=== PATIENT | female | born 1965 | race Caucasian/White ===

== ENCOUNTER 2020-01-31 18:30 | Emergency (ER) | payer MEDICARE, MEDICAID, SELFPAY ==
--- NOTE | ~2020-01-31 | CT_ITS ---
EXAMINATION: CT abdomen pelvis w con DATE: 01/31/2020 19:46 INDICATION: Lower abdominal pain and rectal bleeding. TECHNIQUE: Computed tomography (CT) of the abdomen and pelvis was performed with 100 mL Omnipaque-350 intravenous contrast. Automated exposure control and iterative reconstruction technique were employe d. The dose-length product was 1011.81 mGy-cm. COMPARISON: None FINDINGS: Lower lungs are clear. Heart size is normal. No pericardial or pleural effusion. 3.1 cm fluid attenua tion cyst at the left breast. Subtle approximately ill-defined 1.6 cm hypodense lesion at the junctio n of segments 6 and 7 in the liver. Cholecystectomy clips at the gallbladder fossa. Spleen, pancreas, bilateral adrenal glands and kidneys are normal. Normal retrocecal appendix. Small bowel is normal w ith no obstruction. There are few scattered colonic diverticula without adjacent inflammatory change to suggest diverticulitis. Bladder is normal. A few small subtle hypodense likely uterine fibroids. 6 mm fluid attenuation nabothian cyst at the cervix. Bilateral adnexa are unremarkable. Small fat-cont aining umbilical hernia. No free intraperitoneal gas or fluid. No pathologically enlarged abdominal o r pelvic lymphadenopathy. Moderate lower thoracic and mild lumbar spondylosis. IMPRESSION: 1. No acute intra-abdominal/pelvic process. 2. Indeterminate subtle ill-defined 1.6 cm hypodense lesion in the right hepatic lobe which in the ab sence of known liver disease or malignancy is most likely benign. Would however recommend further antionette luation with pre and postcontrast MRI or 3. Fibroid uterus. Reviewed, dictated and finalized at location A. IMPRESSION: 1. No acute intra-abdominal/pelvic process. 2. Indeterminate subtle ill-defined 1.6 cm hypodense lesion in the right hepati c lobe which in the absence of known liver disease or malignancy is most likely benign. Would however recommend further evaluation with pre and postcontrast M RI or 3. Fibroid uterus.
[2020-01-31 18:33] VITALS: BP 165/94; PULSE 110; RESP 18; TEMP 36.4; O2SAT 98
[2020-01-31 18:53] LABS: Basophils Absolute Auto 0.1 K/mm3 (0.0-0.1); Basophils Percent Auto 0.6 % (0.2-1.2); Eosinophils Absolute Auto 0.2 K/mm3 (0-0.3); Eosinophils Percent Auto 1.1 % (0-4.4); Hemoglobin 14.9 g/dL (12.0-15.0); Immature Granulocyte Absolute 0.05 K/mm3 (0.00-0.031); Immature Granulocyte Percent A 0.4 % (0-0.5); Lymphocytes Absolute Auto 3.19 K/mm3 (0.9-3.2); Lymphocytes Percent Auto 22.6 % (18.3-44.2); Mean Corpuscular HGB Conc 33.1 g/dl (32-36); Mean Corpuscular Hemoglobin 28.8 pg (26-34); Mean Corpuscular Volume 86.9 fl (80-100); Mean Platelet Volume 9.2 fl (7.4-10.4); Monocytes Percent Auto 7.1 % (2.6-8.5); Neutrophils Absolute Auto 9.6 K/mm3 (1.3-6.7); Neutrophils Percent Auto 68.2 % (45.5-73.1); Platelet Count Result 311 k/mm3 (150-375); Red Blood Count 5.18 M/mm3 (4.2-5.4); Red Cell Distribution Width 13.2 % (11.5-14.5); White Blood Count 14.1 K/mm3 (4.5-10.0)
[2020-01-31 19:03] LABS: Add Urine Microscopic? YES; Appearance Urine Clear (Clear); Bilirubin Urine Negative (Negative); Blood Urine Negative (Negative); Color Urine Yellow (Yellow); Glucose Urine UA Negative (Negative); Ketones Urine Negative (Negative); Leukocyte Esterase Ur Negative LEU/UL (Negative); Mucus Urine Heavy /lpf; Nitrate Urine Negative (Negative); Protein Urine 1+ mg/dL (Negative); RBC Urine 0-2 /hpf (0-2); Specific Grav Ur 1.029 (1.001-1.035); Squamous Epithelial Cell Urine Rare /hpf (Few); Urobilinogen Urine Negative mg/dL (<2.0); WBC Urine 0-3 /hpf
[2020-01-31 19:05] LABS: Alanine Aminotransferase 37 U/L (4-35); Albumin Level 4.2 g/dL (3.5-5.1); Alkaline Phosphatase 102 U/L (38-126); Anion Gap 9 mmol/L (8-16); Aspartate Amino Transferase 29 U/L (14-36); Bilirubin,Total 0.2 mg/dL (0.2-1.3); Blood Urea Nitrogen 13 mg/dL (7-17); Calcium 9.4 mg/dL (8.4-10.2); Carbon Dioxide 32 mmol/L (22-30); Chloride 100 mmol/L (98-107); Estimated CRCL calculation 49 ml/min; Estimated Glomerular Filt Rate 39; Glucose 108 mg/dL (65-105); Lipase 159 U/L (23-300); Potassium 3.2 mmol/L (3.4-5.0); Sodium 141 mmol/L (137-145)
--- NOTE | 2020-01-31 19:24 | ED.GIBLEED ---
HPI - GI Bleed General Chief complaint: GI Bleed Stated complaint: rectal bleeding Time Seen by Provider: 01/31/20 18:59 Source: patient Mode of arrival: ambulatory Limitations: no limitations History of Present Illness HPI Narrative: This patient is a 54 year old female who presents for evaluation of rectal bleeding. She reports yesterday she noticed bright red blood on the toilet paper after having a bowel movement yesterday. She also reports having sharp rectal pain as well. She reports she was doing well until this afternoon. This afternoon she was having another bowel movement and she noticed blood in her stool. She states the stool appeared to be formed. She states she noticed less blood when she wiped. She also reports lower abdominal cramping. She denies associated nausea, vomiting, fever or chills. she also denies urinary symptoms. Related Data Home Medications Medication Instructions Recorded Confirmed clonazepam 01/31/20 lamotrigine [Lamictal] 200 mg PO DAILY 01/31/20 01/31/20 trazodone 01/31/20 vilazodone [Viibryd] mg 01/31/20 01/31/20 Allergies Allergy/AdvReac Type Severity Reaction Status Date / Time latex Allergy Intermediate Itching Verified 01/31/20 18:35 codeine Allergy Unknown Nausea and Verified 01/31/20 18:35 Vomiting lisinopril Allergy Unknown Unknown Verified 01/31/20 18:35 Review of Systems Review of Systems: All systems reviewed & are unremarkable except as noted in HPI and below Constitutional: Constitutional: Denies chills and Denies fever(s) Cardiovascular: Cardiovascular: Denies chest pain Respiratory: Respiratory: Denies cough, Denies dyspnea and Denies wheezing Gastrointestinal: Gastrointestinal: Reports abdominal pain, Denies nausea and Denies vomiting [facility] Past Medical History Medical History (Updated 02/01/20 @ 00:00 by Background Daemon) Bipolar disorder Hypertension Surgical History Surgical History (Updated 01/31/20 @ 19:29 by Radha Lenz MD) History of cholecystectomy Family History Family History (Updated 08/04/18 @ 14:42 by DOCTOR UNKNOWN) Father Family history of emphysema Family history of thoracic aortic aneurysm Patient's father is Mother Hypertension Family history of arthritis Family history of congestive heart failure Grandparent Hypertension Family history of osteoarthritis Cerebrovascular accident Family history of aortic aneurysm Other Diabetes mellitus Family history of allergic disorder Family history of cardiovascular disease Social History Social History Smoking status: Former smoker Second hand tobacco smoke exposure: No Smoking end date: 04/29/99 Alcohol intake: never Gender identity (if verbalized by the patient): Female Exam Const: General: no acute distress and alert Orientation/consciousness: patient oriented x3 Eyes: EOM: EOMs intact bilaterally Neck: Neck: no lymphadenopathy Resp: Effort & Inspection: normal respiratory effort and no retractions Auscultation: clear to auscultation bilaterally Cardio: Rate: regular rate Rhythm: regular rhythm Heart sounds: no murmurs GI: GI Palp: Yes Soft to palpation, Yes Tenderness to palpation present (GI) (LLQ), No Guarding due to palpation present (GI), No Rigid due to palpation and No Hernia present Rectal Exam: heme negative stool and hemorrhoids Skin: General skin exam: normal color Rashes: no rashes Neuro: General: patient oriented x3 and moves all extremities Extrem: General: normal to inspection and no pedal edema Psych: Mental Status: mental status grossly normal Affect: normal affect Course Reevaluation(s) Reevaluation #1: I discussed with patient about CT results showing uterine fibroid, breast cyst and lesions on liver. She is aware of breast cyst. She understands she will need to follow up for liver lesions. She has not had a colonoscopy so she understands she will need on
[2020-01-31] MEDS: SODIUM CHLORIDE 0.9% IV 1,000 ML 999 ML IV CONT (19:42)
[2020-01-31 20:57] VITALS: BP 152/74; PULSE 72; RESP 16; O2SAT 99
== END 2020-01-31 20:58 | disposition home or self-care (01) ==
PROVIDERS: Emergency Medicine Emergency Medical Services; Emergency Provider General Practice
DX: K64.9 Unspecified hemorrhoids (principal); F31.9 Bipolar disorder, unspecified; Z87.891 Personal history of nicotine dependence; K76.9 Liver disease, unspecified; D25.9 Leiomyoma of uterus, unspecified
CPT/HCPCS: 36415; 74177; 80053; 81001; 83690; 85025; 86850; 86900; 86901; 96360; 99284; J7030; Q9967

== ENCOUNTER 2020-02-25 14:28 | Outpatient (CLI) | payer MEDICARE, MEDICAID, SELFPAY ==
--- NOTE | ~2020-02-25 | MR_ITS ---
EXAMINATION: MR abdomen wo/w con DATE: 02/25/2020 15:58 INDICATION: Mass in right hepatic lobe. TECHNIQUE: Magnetic resonance imaging (MRI) of the abdomen was performed without and with 19 mL Multi Lakesha intravenous contrast. Sequences included coronal T2-weighted FS FSE, coronal and axial FS FIEST A, axial T2-weighted FSE, coronal LAVA-flex, axial STIR FSE, axial DWI, axial dual-echo T1-weighted F SPGR, and axial LAVA. Postcontrast sequences included coronal LAVA-flex and a time course of axial LA VA. COMPARISON: CT abdomen and pelvis 01/31/20 FINDINGS: There is a 3.7 cm cyst in left breast. There is a 1.6 cm mass with delayed hyperenhancement in right hepatic lobe. The gallbladder is absent. The spleen, pancreas, adrenal glands, and kidneys are normal . There are no dilated loops of bowel. There are no pathologically enlarged lymph nodes. There is no free intraperitoneal fluid. IMPRESSION: 1. 1.6 cm mass in right hepatic lobe. In the absence of known malignancy or chronic liver disease, th is finding is likely a hemangioma. Reviewed, dictated and finalized at location A. IMPRESSION: 1. 1.6 cm mass in right hepatic lobe. In the absence of known malignancy or chr onic liver disease, this finding is likely a hemangioma.
[2020-02-25 15:22] LABS: Estimated Glomerular Filt Rate 47
== END 2020-02-25 14:29 | disposition home or self-care (01) ==
PROVIDERS: PCP Family Medicine; Visit Provider Family Medicine
DX: K76.9 Liver disease, unspecified (principal)
CPT/HCPCS: 74183; A9577

== ENCOUNTER 2022-04-02 15:20 | Emergency (ER) | payer MEDICARE, MEDICAID, SELFPAY ==
--- NOTE | ~2022-04-02 | XR_ITS ---
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 RESULT: Lines, tubes, and devices: Cholecystectomy clips. Lungs and pleura: Clear. Cardiomediastinal silhouette: Stable. Other: No acute osseous or upper abdominal finding. IMPRESSION: No acute cardiopulmonary process. Reviewed, dictated and finalized at location K. NG MACHINE OPERATOR
[2022-04-02 15:21] VITALS: BP 144/98; PULSE 92; RESP 16; TEMP 36.3; O2SAT 100
--- NOTE | 2022-04-02 15:29 | ECG_ITS ---
Measurements Intervals [place] Rate: 82 P: 41 DE: 182 QRS: -5 QRSD: 87 T: 29 QT: 365 QTc: 428 Interpretive Statements SINUS RHYTHM MINIMAL VOLTAGE CRITERIA FOR LVH, CONSIDER NORMAL VARIANT LOW-VOLTAGE QRS IN PRECORDIAL LEADS BORDERLINE ECG NO PREVIOUS ECG AVAILABLE FOR COMPARISON Electronically Signed On 04-02-2022 16:09:45 POST EXCHANGE MANAGER by Sergio Rock M.D.
[2022-04-02 15:51] LABS: Basophils Absolute Auto 0.1 K/mm3 (0.0-0.1); Basophils Percent Auto 0.8 % (0.2-1.2); Eosinophils Absolute Auto 0.1 K/mm3 (0-0.3); Eosinophils Percent Auto 1.8 % (0-4.4); Hematocrit 39.9 % (37.0-47.0); Hemoglobin 12.9 g/dL (12.0-15.0); Immature Granulocyte Absolute 0.02 K/mm3 (0.00-0.031); Immature Granulocyte Percent A 0.3 % (0-0.5); Lymphocytes Absolute Auto 2.06 K/mm3 (0.9-3.2); Lymphocytes Percent Auto 26.4 % (18.3-44.2); Mean Corpuscular HGB Conc 32.3 g/dl (32-36); Mean Corpuscular Volume 86.6 fl (80-100); Mean Platelet Volume 9.2 fl (7.4-10.4); Monocytes Absolute Auto 0.5 K/mm3 (0.1-0.6); Monocytes Percent Auto 6.8 % (2.6-8.5); Neutrophils Percent Auto 63.9 % (45.5-73.1); Platelet Count Result 259 k/mm3 (150-375); Red Blood Count 4.61 M/mm3 (4.2-5.4); Red Cell Distribution Width 14.1 % (11.5-14.5); White Blood Count 7.8 K/mm3 (4.5-10.0)
[2022-04-02 16:00] LABS: Alanine Aminotransferase 31 U/L (6-35); Albumin Level 3.4 g/dL (3.5-5.1); Alkaline Phosphatase 102 U/L (38-126); Anion Gap 6 mmol/L (8-16); Aspartate Amino Transferase 26 U/L (14-36); Bilirubin,Total 0.3 mg/dL (0.2-1.3); Blood Urea Nitrogen 13 mg/dL (7-17); Calcium 8.2 mg/dL (8.4-10.2); Carbon Dioxide 27 mmol/L (22-30); Chloride 107 mmol/L (98-107); Estimated CRCL calculation 74 ml/min; Estimated Glomerular Filt Rate > 60; Glucose 102 mg/dL (65-110); Lipase 42 U/L (23-300); Potassium 3.7 mmol/L (3.4-5.0); Sodium 140 mmol/L (137-145)
[2022-04-02 16:01] LABS: Prothrombin Time 12.5 Seconds (11.1-14.7)
[2022-04-02 16:02] LABS: Partial Thromboplastin Time 29.8 SECONDS (22.3-36.8)
[2022-04-02 16:12] LABS: Troponin I < 0.012 ng/mL (0.000-0.034)
[2022-04-02 18:39] VITALS: BP 153/83; PULSE 70; RESP 16; TEMP 36.1; O2SAT 100
--- NOTE | 2022-04-02 18:39 | ECG_ITS ---
Measurements Intervals [place] Rate: 69 P: 21 IA: 166 QRS: -3 QRSD: 90 T: 16 QT: 391 QTc: 420 Interpretive Statements SINUS RHYTHM MODERATE VOLTAGE CRITERIA FOR LVH, CONSIDER NORMAL VARIANT [MEETS CRITERIA IN ONE OF: R(aVL), S(V1), R(V5), R(V5/V6)+S(V1)] COMPARED TO ECG 04/02/2022 15:32:54 NO SIGNIFICANT CHANGES Electronically Signed On 04-03-2022 15:22:03 RADIOLOGY TEACHER by Liss Aguila M.D.
[2022-04-02 19:16] LABS: Troponin I 0.024 ng/mL (0.000-0.034)
--- NOTE | 2022-04-02 20:11 | PC.NURSE ---
patient left waiting room without seeing provider. advised to return if needed.
== END 2022-04-02 21:15 | disposition left against medical advice (07) ==
PROVIDERS: Emergency Provider Emergency Medicine; PCP Family Medicine
DX: M62.830 Muscle spasm of back (principal); R07.2 Precordial pain; M79.602 Pain in left arm
CPT/HCPCS: 36415; 71046; 80053; 83690; 84484; 85025; 85610; 85730; 93005; 99199

== ENCOUNTER 2022-05-16 11:17 | Outpatient (CLI) | payer MEDICARE, MEDICAID, SELFPAY ==
[2022-05-16 13:12] LABS: Urine Cotinine NEGATIVE
[2022-05-17 13:42] LABS: Hemoglobin A1C 5.9 % (<5.7)
== END 2022-05-16 11:18 | disposition home or self-care (01) ==
PROVIDERS: PCP Family Medicine; Visit Provider Orthopaedic Surgery
DX: Z01.812 Encounter for preprocedural laboratory examination (principal); M17.11 Unilateral primary osteoarthritis, right knee
CPT/HCPCS: 80307; 82040; 83036; 86850; 86900; 86901; 87081

== ENCOUNTER 2022-06-11 16:49 | Outpatient (CLI) | payer MEDICARE, MEDICAID, SELFPAY ==
--- NOTE | ~2022-06-11 | XR_ITS ---
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 RESULT: Lines, tubes, and devices: Cholecystectomy clips. Lungs and pleura: Clear. Cardiomediastinal silhouette: Stable. Other: No acute osseous or upper abdominal finding. IMPRESSION: No acute cardiopulmonary process. Reviewed, dictated and finalized at location K. RSITY MANAGER
[2022-06-11 18:48] LABS: Influenza A QL RT-PCR Negative (Negative); Influenza B QL RT-PCR Negative (Negative); RSV RNA, RT-PCR Negative (Negative); SARS-CoV-2 RNA PCR Negative
== END 2022-06-11 16:50 | disposition home or self-care (01) ==
PROVIDERS: PCP Family Medicine; Visit Provider Family Medicine
DX: R05.9 Cough, unspecified (principal); Z20.822 Contact with and (suspected) exposure to COVID-19
CPT/HCPCS: 71046; 87637

== ENCOUNTER 2022-10-04 09:44 | Outpatient (CLI) | payer MEDICARE, MEDICAID, SELFPAY ==
[2022-10-04 10:42] LABS: Basophils Absolute Auto 0.1 K/mm3 (0.0-0.1); Basophils Percent Auto 1.3 % (0.2-1.2); Eosinophils Absolute Auto 0.3 K/mm3 (0-0.3); Eosinophils Percent Auto 3.5 % (0-4.4); Hemoglobin 13.6 g/dL (12.0-15.0); Immature Granulocyte Absolute 0.03 K/mm3 (0.00-0.031); Immature Granulocyte Percent A 0.3 % (0-0.5); Lymphocytes Percent Auto 26.7 % (18.3-44.2); Mean Corpuscular HGB Conc 31.6 g/dl (32-36); Mean Corpuscular Hemoglobin 27.3 pg (26-34); Mean Corpuscular Volume 86.2 fl (80-100); Mean Platelet Volume 9.2 fl (7.4-10.4); Monocytes Absolute Auto 0.5 K/mm3 (0.1-0.6); Monocytes Percent Auto 6.1 % (2.6-8.5); Neutrophils Absolute Auto 5.4 K/mm3 (1.3-6.7); Neutrophils Percent Auto 62.1 % (45.5-73.1); Platelet Count Result 265 k/mm3 (150-375); Red Blood Count 4.99 M/mm3 (4.2-5.4); Red Cell Distribution Width 13.7 % (11.5-14.5); White Blood Count 8.6 K/mm3 (4.5-10.0)
[2022-10-04 10:49] LABS: Albumin Level 3.8 g/dL (3.5-5.1)
[2022-10-04 10:52] LABS: Urine Cotinine NEGATIVE
[2022-10-04 10:54] LABS: Hemoglobin A1C 5.4 % (<5.7)
[2022-10-04 10:55] LABS: Anion Gap 5 mmol/L (8-16); Blood Urea Nitrogen 14 mg/dL (7-17); Calcium 8.4 mg/dL (8.4-10.2); Carbon Dioxide 30 mmol/L (22-30); Chloride 105 mmol/L (98-107); Estimated Glomerular Filt Rate 58; Glucose 99 mg/dL (65-110); Potassium 3.8 mmol/L (3.4-5.0); Sodium 140 mmol/L (137-145)
== END 2022-10-04 09:45 | disposition home or self-care (01) ==
LOC: ANHSURGERY 09:49
PROVIDERS: Anesthesiology; PCP Family Medicine; Visit Provider Orthopaedic Surgery
DX: Z01.812 Encounter for preprocedural laboratory examination (principal); M17.11 Unilateral primary osteoarthritis, right knee; Z79.899 Other long term (current) drug therapy
CPT/HCPCS: 36415; 80048; 80307; 82040; 83036; 85025; 86850; 86900; 86901; 87081

== ENCOUNTER 2022-10-10 09:00 | Inpatient (IN) | payer MEDICARE, MEDICAID, SELFPAY ==
--- NOTE | 2022-05-16 11:23 | PC.NURSE ---
PRE-OP INSTRUCTIONS, PLEASE READ CAREFULLY Report to the Outpatient Waiting Room, entrance under the green pavilion located off [facility], at time _0600_ on date _05/23/22_. Planned Procedure Time: _0730_. PACK A SMALL OVERNIGHT BAG AND LEAVE IN THE CAR ALONG WITH YOUR WALKER Time changes happen often and if your time is changed the preop area will call you the afternoon before. - You and your visitor will be asked to self-screen and do not enter if you have any COVID symptoms. - Only one visitor is requested with a max of two and NO children visitors are allowed at this time. - The patient visitor may be requested to leave or wait in car when not with patient due to distancing restrictions. - A mask is optional within the hospital. -VISITING HOURS 8AM-8PM Patients may have clear liquids (water, carbonated beverages, clear teas, apple juice) until 3 hours prior to surgery (0430 AM) with a maximum of 20 ounces. - No food from midnight until time of surgery Take the following medications with a SIP of water the morning of surgery: _CLONAZEPAM, VILAZODONE_ Medications to discontinue -_ALEVE PER DR. SEVILLA'S INSTRUCTIONS_ Medications to discontinue per ANESTHESIA - _MULTIVITAMIN 3 DAYS PRIOR TO SURGERY, Date to take last dose 05/19/22_ Please no make-up, nail japanese, hairspray, perfume, deodorant, or body powder the day of surgery. No jewelry (including any body piercings) or valuables the day of surgery, leave them at home. Please take a shower or bath the night before, or the morning of, surgery with an antibacterial soap. Wear comfortable, loose fitting clothing. - Jewelry must be removed prior to entering the operating room. Rings and piercings that are not removed may be cut off. - The hospital will not accept responsibility for valuables. - Please leave all valuables, including medications, at home the day of surgery. If you are going home after surgery, a licensed crew truck driver must drive you home. - NO public transportation without another adult if you receive anesthesia. - We recommend that an adult stay with you for 24 hours following discharge. - We also recommend that you do not drive, make important decision, drink alcoholic beverages, or take any drugs that were not prescribed by your health care provider for at least 24 hours after your discharge time. Follow any additional instructions given to you from your surgeon. If you or anyone in your household have experienced Covid symptoms in the past week, please notify your surgeon or the nurse liaison at the phone number below for possible testing. Instructions given to _PATIENT_and asked if any additional questions and then verbalized understanding. Patient advised to call surgeon office or pre surgery nurse liaison [phone] if any additional questions.
[2022-05-16 11:48] VITALS: BP 140/90; PULSE 96; RESP 20; TEMP 36.7; O2SAT 96; BMI 37.1
--- NOTE | 2022-05-17 13:10 | PM.IMHP ---
H&P: HPI History of Present Illness Date/Time: 05/17/22 13:10 Chief Complaint: The patient is a 56-year-old female who sees Dr. Olmos regarding her right knee. The patient has a chronic ongoing history of pain localized right knee this is our primary osteoarthritis. The patient has been treated over the years with cortisone therapy and anti-inflammatories and gel shots as well. X-rays show advanced primary osteoarthritis both knees, she has limitation of daily activity has trouble standing or walking for any amount of time is aching pain worse with activity somewhat relieved by rest. The patient has failed a long course of conservative measures x-rays show advanced primary osteoarthritis she has discussed further treatment options in detail Dr. Olmos the patient would now like to proceed with a right total knee arthroplasty. Review of Systems Review of Systems: Ten point review of systems otherwise negative [facility] Past Medical History Medical History Anxiety Bipolar depression Bipolar disorder Hypertension Hypokalemia Surgical History Surgical History History of 08/1989 History of cholecystectomy 05/2013 History of endometrial ablation 01/2005 History of hemorrhoidectomy History of tonsillectomy 1972 Family History Family History Father Family history of emphysema Family history of thoracic aortic aneurysm Patient's father is Mother Hypertension Family history of arthritis Family history of congestive heart failure Grandparent Hypertension Family history of osteoarthritis Cerebrovascular accident Family history of aortic aneurysm Other Diabetes mellitus Family history of allergic disorder Family history of cardiovascular disease Social History Social History Smoking packs per day: 2.5 Smoking cigarettes per day: 50.0 Years smoked: 20 Smoking pack-years: 50.00 Smoking status: Former smoker Tobacco type: cigarettes Second hand tobacco smoke exposure: No Smoking end date: 04/29/99 Alcohol intake: never Substance use: never Gender identity (if verbalized by the patient): Female Spiritual care concerns: No Meds Home Medications and Allergies Home Medications Medication Instructions Recorded Confirmed Type clonazepam 0.5 mg tablet 0.5 mg PO QID 02/16/20 05/16/22 History lamotrigine 200 mg tablet 200 mg PO DAILY 02/16/20 05/16/22 History (Lamictal) trazodone 100 mg tablet 100 mg PO HS 02/16/20 05/16/22 History vilazodone 40 mg tablet (Viibryd) 40 mg PO DAILY 02/16/20 05/16/22 History omeprazole 40 mg capsule,delayed 40 mg PO DAILY #90 caps 02/23/22 05/16/22 Rx release hydrochlorothiazide 50 mg tablet See Rx Instructions .Route 03/26/22 05/16/22 Rx .COMPLEX #90 tabs potassium chloride 20 mEq 20 meq PO DAILY #90 tabs 03/26/22 05/16/22 Rx tablet,extended release gtbtzmzn-dqp-llrhc acid 500 1 tablet PO DAILY 05/16/22 05/16/22 History mcg-lycopene 300 mcg-lutein 250 mcg tablet naproxen sodium 220 mg tablet 220 mg PO BID PRN Pain 05/16/22 05/16/22 History (Aleve) triamcinolone acetonide 0.1 % 1 applic topical BID PRN SKIN 05/16/22 05/16/22 History topical cream IRRITAION Allergies Allergy/AdvReac Type Severity Reaction Status Date / Time latex Allergy Intermediate Itching Verified 05/16/22 11:38 codeine Allergy Unknown Nausea and Verified 05/16/22 11:38 Vomiting hydrocodone AdvReac Nausea and Verified 05/16/22 11:58 Vomiting Exam Narrative: on exam the patient is noted to be 5 ft 5 in tall 220 lb the BMI 36 well-developed well-nourished female no acute distress alert oriented x3. Normal mood and affect. Hearing and vision intact she wears glasses. Respiratory is good no
--- NOTE | 2022-10-01 08:57 | PC.NURSE ---
PRE-OP INSTRUCTIONS, PLEASE READ CAREFULLY Report to the Outpatient Waiting Room, entrance under the green pavilion located off [facility], at time _0600_ on date _10/10/22_. Planned Procedure Time: _0730_. PACK A SMALL OVERNIGHT BAG AND LEAVE IN THE CAR ALONG WITH YOUR WALKER Time changes happen often and if your time is changed the preop area will call you the afternoon before. - You and your visitor will be asked to self-screen and do not enter if you have any COVID symptoms. - A mask is optional within the hospital at this time. -VISITING HOURS 8AM-8PM Patients may have clear liquids (water, carbonated beverages, clear teas, apple juice) until 3 hours prior to surgery (0430 AM) with a maximum of 20 ounces. - No food from midnight until time of surgery - Infants may have breast milk until 4 hours before surgery, infant formula 6 hours prior to surgery. -Take the following medications with a SIP of water the morning of surgery: _CLONAZEPAM, LAMOTRIGINE, VILAZODONE_ DO NOT STOP ANY OF YOUR OTHER PRESCRIPTION MEDICATIONS PRIOR TO SURGERY ?EXCEPT THE FOLLOWING Medications to discontinue per - _ALEVE PER DR. SEVILAL'S INSTRUCTIONS_ Medications to discontinue per ANESTHESIA - MULTIVITAMIN 3 DAYS PRIOR TO SURGERY, Date to take last dose 10/06/22_ Please no make-up, nail gibraltarian, hairspray, perfume, deodorant, or body powder the day of surgery. No jewelry (including any body piercings) or valuables the day of surgery, leave them at home. Please take a shower or bath the night before, or the morning of, surgery with an antibacterial soap. Wear comfortable, loose fitting clothing. Children are encouraged to wear pajamas. - Jewelry must be removed prior to entering the operating room. Rings and piercings that are not removed may be cut off. - The hospital will not accept responsibility for valuables. - Please leave all valuables, including medications, at home the day of surgery. If you are going home after surgery, a licensed buggy driver must drive you home. - NO public transportation without another adult if you receive anesthesia. - We recommend that an adult stay with you for 24 hours following discharge. - We also recommend that you do not drive, make important decision, drink alcoholic beverages, or take any drugs that were not prescribed by your health care provider for at least 24 hours after your discharge time. Follow any additional instructions given to you from your surgeon. If you or anyone in your household have experienced Covid symptoms in the past week, please notify your surgeon or the nurse liaison at the phone number below for possible testing. Telephone instructions given to _PATIENT_and asked if any additional questions and then verbalized understanding. Patient advised to call surgeon office or pre surgery nurse liaison [phone] if any additional questions.
[2022-10-01 09:16] VITALS: BMI 36.3
--- NOTE | 2022-10-04 13:59 | PM.IMHP ---
H&P: HPI History of Present Illness Date/Time: 10/04/22 13:59 Chief Complaint: The patient is a 56-year-old female who sees Dr. Olmos regarding her right knee the patient has a chronic ongoing history of pain localized to the right knee due to primary osteoarthritis. She has chronic aching pain limits her daily activities she has been treated over the years with cortisone therapy gel shots and anti-inflammatories without significant long-term relief. She has x-rays which show advanced primary osteoarthritis of both knees. She has trouble squatting kneeling going up and downstairs cannot stand or walk for long periods. Despite conservative measures symptoms continue. The patient is where she has advanced osteoarthritis noted on x-ray and exam. The patient at this point has failed conservative measures and discuss further treatment options in detail with Dr. Olmos she would now like to proceed with right total knee arthroplasty. Review of Systems Review of Systems: Ten point review of systems otherwise negative does have a history of anxiety. [facility] Past Medical History Medical History Anxiety Bipolar depression Hypertension Hypokalemia Osteoarthritis of knees, bilateral Prediabetes Surgical History Surgical History History of 08/1989 History of cholecystectomy 05/2013 History of endometrial ablation 01/2005 History of hemorrhoidectomy History of tonsillectomy 1973 Family History Family History Father Family history of emphysema Family history of thoracic aortic aneurysm Patient's father is Mother Hypertension Family history of arthritis Family history of congestive heart failure Grandparent Hypertension Family history of osteoarthritis Cerebrovascular accident Family history of aortic aneurysm Other Diabetes mellitus Family history of allergic disorder Family history of cardiovascular disease Social History Social History Smoking packs per day: 2.5 Smoking cigarettes per day: 50.0 Years smoked: 20 Smoking pack-years: 50.00 Smoking status: Former smoker Tobacco type: cigarettes Second hand tobacco smoke exposure: No Smoking end date: 04/29/01 Additional smoking assessment comments: PT DENIES ALL FORMS OF TOBACCO USE Alcohol intake: never Substance use: never Living arrangements: alone Gender identity (if verbalized by the patient): Female Spiritual care concerns: No Meds Home Medications and Allergies Home Medications Medication Instructions Recorded Confirmed Type lamotrigine 200 mg tablet 200 mg PO DAILY 02/16/20 10/01/22 History (Lamictal) trazodone 100 mg tablet 100 mg PO HS 02/16/20 10/01/22 History vilazodone 40 mg tablet (Viibryd) 40 mg PO DAILY 02/16/20 10/01/22 History potassium chloride 20 mEq 20 meq PO DAILY #90 tabs 03/26/22 10/01/22 Rx tablet,extended release isndhuyp-bwb-bopbj acid 500 1 tablet PO DAILY 05/16/22 10/01/22 History mcg-lycopene 300 mcg-lutein 250 mcg tablet naproxen sodium 220 mg tablet 220 mg PO BID PRN Pain 05/16/22 10/01/22 History (Aleve) triamcinolone acetonide 0.1 % 1 applic topical BID PRN SKIN 05/16/22 10/01/22 History topical cream IRRITAION clonazepam 1 mg tablet 1 mg PO QID 09/13/22 10/01/22 History hydrochlorothiazide 50 mg tablet 50 mg PO DAILY 09/13/22 10/01/22 History omeprazole 40 mg capsule,delayed 40 mg PO DAILY #30 caps 09/25/22 10/01/22 Rx release Allergies Allergy/AdvReac Type Severity Reaction Status Date / Time latex Allergy Intermediate Itching Verified 10/01/22 08:56 codeine Allergy Unknown Nausea and Verified 10/01/22 08:56 Vomiting hydrocodone AdvReac Nausea and Verified 10/01/22 08:56 Vomiting Exam Narrat
--- NOTE | ~2022-10-10 | XR_ITS ---
EXAMINATION: [id number] DATE: 10/10/2022 INDICATION: Right knee arthroplasty. Postop. TECHNIQUE: 2 views of right knee were obtained. COMPARISON: None. FINDINGS: There is a total right knee arthroplasty in near-anatomic alignment with patellar resurfaci ng. No fracture. There is gas in the knee joint and soft tissues, consistent with recent surgery. Ant erior skin jo are noted. IMPRESSION: 1. Total right knee arthroplasty in near-anatomic alignment. Reviewed, dictated and finalized at location A.
--- NOTE | ~2022-10-10 | XR_ITS ---
EXAM: XR foot RT min 3V DATE: 10/11/2022 13:52 HISTORY: trauma, pain swelling metatarsals AND TOES . COMPARISON: None available. FINDINGS: Normal mineralization. Oblique minimally displaced fracture of the proximal aspect of the fourth proximal phalange. Minimally displaced oblique fracture of the fifth middle phalange. No lytic or blastic lesion. Achilles and plantar enthesopathy. No erosion or periosteal change. Forefoot soft tissue swelling. IMPRESSION: Minimally displaced fractures of the fourth proximal and fifth middle phalanges. Reviewed, dictated and finalized at location K. IMPRESSION: Minimally displaced fractures of the fourth proximal and fifth midd le phalanges.
--- NOTE | 2022-10-10 09:17 | OP_ITS ---
This report was moved to the correct visit on 10/11/2022. Original report was signed by Raman Olmos MD on 10/11/22 0756. cc: Raman Olmos MD; Silas Burgos MD~ DATE OF PROCEDURE: 10/10/2022 DIAGNOSIS: Degenerative arthritis, right knee. PROCEDURE: Right total knee arthroplasty. DESIGN ENG: Perry Giordano PA-C. DESCRIPTION OF PROCEDURE: The patient was brought to the operating room. General anesthetic was administered. Placed on the operating room table and sterilely prepped and draped in usual manner. Tourniquet was inflated to 300 mmHg for a total of 47 minutes. Longitudinal incision was made. Dissection was carried down the fascia. Medial parapatellar incision was made and the patella subluxated laterally. The patella wasa cut from 21 to 14 mm. The femur was then cut in 6 degrees of valgus to accept a 60 fermoral component. The tibia was cut perpendicular to the long axis and a 63 tibia was felt to fit the best. Soft tissue balanced, hemostasis obtained in all [address] 63 tibia, 60 femur, 31 mm patella, 11 mm tray placed. This gave excellent motion of both flexion and extension. All counts were correct. The patella tracked with the no thumbs technique. Tourniquet released. Hemostasis obtained. The wound thoroughly irrigated and closed with #2 Vicryl and 2 Quill, 2-0 Vicryl, 0 Quill and jo. Sterile dressing applied. The patient left the operating room in satisfactory condition. Proshesis: Biomet Annika Villar I MT: [facility] This report may have been done utilizing a voice recognition system. Attempts have been made to correct errors. However, there may be uncorrected grammatical, spelling, and recognition errors present. Dictated By: Raman Olmos MD 10/10/22 0917 Transcribed Date/Time: 10/10/22 1245 Signed By: Raman Olmos MD 10/11/[address] [facility]
--- NOTE | 2022-10-10 10:15 | OP_ITS ---
cc: ~ DATE OF PROCEDURE: 10/10/2022 PREOPERATIVE DIAGNOSIS: Advanced primary osteoarthritis, right knee joint. POSTOPERATIVE DIAGNOSIS: Advanced primary osteoarthritis, right knee joint, status post right total knee arthroplasty. PROCEDURE: Right total knee arthroplasty. SURGEON: Raman Olmos MD. HANDKERCHIEF MAKER: Perry Giordano P.A.-C. TOTAL BLOOD LOSS: Approximately 200 cc. DESCRIPTION OF PROCEDURE: The patient was taken to the operating room on 10/10/2022. I entered the room at 7:15 a.m. I assisted with positioning the patient on the table including placement of the tourniquet on the thigh, which was well padded. Then assisted with a sterile prep and drape of the right lower extremity. Throughout the procedure, I assisted with wound retraction, hemostasis with suction and cauterization, placement of the leg throughout the procedure, placement of the implant, and excess cement removal once the implant was placed. Once Dr. Olmos completed his portion of the procedure, I then did a thorough irrigation of the wound, followed by placement of Surgicel powder throughout the deep layers of the surgical wound. I then began with closure of the capsule of the right knee with #2 Vicryl and #2 Quill. I then irrigated the wound once again, placed more Surgicel powder. I made sure complete hemostasis was obtained with cauterization. I then closed the skin layer with 2-0 Vicryl, 0 Quill and surgical jo, placing a sterile dressing with Xeroform gauze, 4 x 4 gauze, Sof-Rol gauze, and a large Derrick wrap from the toes to the thigh. The patient was in stable condition without intraoperative complications. The patient was awakened from general anesthesia, then transferred the patient [facility] in good condition. The patient was expected to spend the night, to be discharged tomorrow if in stable condition. I exited the room at 9:50 a.m. Jian Corrine MT: Anurag This report may have been done utilizing a voice recognition system. Attempts have been made to correct errors. However, there may be uncorrected grammatical, spelling, and recognition errors present. Dictated By: Perry Giordano PA-C 10/10/22 1015 Transcribed Date/Time: 10/10/22 6865 Signed By: BEATRIZ
--- NOTE | 2022-10-10 15:03 | OP_ITS ---
DATE OF PROCEDURE: 10/10/2022 PREOPERATIVE DIAGNOSIS: Advanced primary osteoarthritis, right knee joint. POSTOPERATIVE DIAGNOSIS: Advanced primary osteoarthritis, right knee joint, status post right total knee arthroplasty. PROCEDURE: Right total knee arthroplasty. SURGEON: Raman Olmos MD. FUNCTIONAL DIRECTOR: Perry Giordano P.A.-C. TOTAL BLOOD LOSS: Approximately 200 cc. DESCRIPTION OF PROCEDURE: The patient was taken to the operating room on 10/10/2022. I entered the room at 7:15 a.m. I assisted with positioning the patient on the table including placement of the tourniquet on the thigh, which was well padded. Then assisted with a sterile prep and drape of the right lower extremity. Throughout the procedure, I assisted with wound retraction, hemostasis with suction and cauterization, placement of the leg throughout the procedure, placement of the implant, and excess cement removal once the implant was placed. Once Dr. Olmos completed his portion of the procedure, I then did a thorough irrigation of the wound, followed by placement of Surgicel powder throughout the deep layers of the surgical wound. I then began with closure of the capsule of the right knee with #2 Vicryl and #2 Quill. I then irrigated the wound once again, placed more Surgicel powder. I made sure complete hemostasis was obtained with cauterization. I then closed the skin layer with 2-0 Vicryl, 0 Quill and surgical jo, placing a sterile dressing with Xeroform gauze, 4 x 4 gauze, Sof-Rol gauze, and a large Derrick wrap from the toes to the thigh. The patient was in stable condition without intraoperative complications. The patient was awakened from general anesthesia, then transferred the patient [facility] to recovery room in good condition. The patient was expected to spend the night, to be discharged tomorrow if in stable condition. I exited the room at 9:50 a.m. Jian Corrine MT: Anurag
[2022-10-10] MEDS: DEXTROSE 5%/0.45% SOD CHL 1,000 ML 80 ML IV CONT (18:00)
[2022-10-10] MEDS: HYDROcodone/acetaminophen (*CRX) 7.5-325 MG TABLET 1 TAB PO (21:14)
[2022-10-10 21:22] VITALS: BMI 36.7
[2022-10-10 21:23] VITALS: BP 126/70; PULSE 93; RESP 20; TEMP 36.4; O2SAT 96
--- NOTE | 2022-10-10 22:06 | PC.NURSE ---
Paper documentation exists on this patient due to [employer] [facility] downtime on 10/10/22 from 0030 to [1930] .
[2022-10-11] MEDS: ceFAZolin 1 GM/NS 50 ML 1 GM/50 ML BAG IVPB ×2 (01:00→09:37)
[2022-10-11] MEDS: HYDROcodone/acetaminophen (*CRX) 7.5-325 MG TABLET 1 TAB PO ×6 (01:05→21:11)
[2022-10-11 01:09] VITALS: BP 133/59; PULSE 84; RESP 16; TEMP 36.6; O2SAT 98
[2022-10-11 04:59] VITALS: BP 140/69; PULSE 86; RESP 18; TEMP 36.5; O2SAT 97
--- NOTE | 2022-10-11 05:00 | CONS_ITS ---
DATE OF CONSULTATION: 10/10/2022 TIME OF EVALUATION: 20:00. REASON FOR CONSULTATION: Postoperative medical management. HISTORY OF PRESENT ILLNESS: This is a 57-year-old female with history of osteoarthritis, hypertension, GERD, bipolar disorder, depression, and anxiety whom the hospitalist service has been consulted for help managing her medical conditions postoperatively. She has had longstanding pain in her right knee, which has gotten to the point where it is affecting her activities of daily living. Conservative outpatient treatment has not provided her with longstanding relief and she elected for replacement today. I do not have the operative notes available to me at this time, but according to the nurse there were no immediate complications. Postoperatively, she has been feeling okay as long as her pain is under control. At times, she has a sharp shooting pain in the anterior knee and she has been experiencing some burning discomfort at the incision site as well. She denies postoperative fever, chills, sweats, chest pain, shortness of breath, nausea, vomiting. She also denies paresthesia, skin color or temperature changes distal to the surgical site. She believes that her chronic medical conditions are well controlled on home medication. REVIEW OF SYSTEMS: Twelve systems were reviewed and are negative except for as per HPI. MEDICAL HISTORY: 1. Osteoarthritis. 2. Anxiety. 3. Depression. 4. Bipolar disorder. 5. Hypertension. 6. Prediabetes. SURGICAL HISTORY: 1. section on 09/14/1989. 2. Cholecystectomy 06/18/2013. 3. Endometrial ablation 01/2005. 4. Tonsillectomy. 5. Right total knee arthroplasty today. HOME MEDICATIONS: 1. Clonazepam 1 mg q.i.d. 2. Hydrochlorothiazide 50 mg daily. 3. Lamotrigine 200 mg at bedtime. 4. Multivitamin daily. 5. Naproxen 220 mg b.i.d. as needed for pain. 6. Omeprazole 40 mg daily. 7. Potassium chloride 20 mEq daily. 8. Trazodone 100 mg at bedtime. 9. Triamcinolone ointment as needed for skin irritation. 10. Vilazodone 40 mg daily. ALLERGIES: LATEX (PRURITUS), CODEINE (NAUSEA AND VOMITING), HYDROCODONE (NAUSEA AND VOMITING). SOCIAL HISTORY: The patient is disabled. She smoked 2.5 pack cigarettes a day for 20 years and quit in 2001. Denies alcohol or illicit substance use. She designates her mother as her surrogate decision maker and she wishes to be a full code. FAMILY HISTORY: Mother with hypertension, congestive heart failure. Father with emphysema and aortic aneurysm. PHYSICAL EXAMINATION: CURRENT VITAL SIGNS: Pulse 93, respiratory rate 20, blood pressure 126/70, pulse ox 96% on room air, and temperature 97.6. GENERAL: Well-developed, well-nourished female in mild pain. HEENT: She is wearing corrective lenses. Normocephalic, atraumatic. PERRLA. EOMI. Sclerae anicteric. Tacky mucous membranes. NECK: Supple. RESPIRATORY: Respirations are nonlabored and lungs are clear to auscultation. CARDIOVASCULAR: Regular rate and rhythm with normal S1, S2. GASTROINTESTINAL: Abdomen is soft, obese, nontender, nondistended with positive bowel sounds. SKIN: Warm, dry and slightly pale. EXTREMITIES: No cyanosis or clubbing. She has some mild edema on the dorsum of the right foot, which she states is residual from a fall several weeks ago. Right knee dressing is clean, dry, and intact. She is neurovascularly intact distal to the surgical site. NEUROLOGIC: Alert. Cranial nerves II through XII grossly intact. No gross focal deficits. Casual conversation. PSYCHIATRIC: Appropriate mood and affect. INITIAL IMPRESSION: 57-year-old female with right knee arthritis, who presented today for elective right total knee arthroplasty. 1. Right knee osteoarthritis. 2.
--- NOTE | 2022-10-11 09:29 | PM.IMPN ---
Progress Note: A&P Assessment and Plan (1) Osteoarthritis of knees, bilateral: Qualifiers: Osteoarthritis type: primary Qualified Code(s): M17.0 - Bilateral primary osteoarthritis of knee Code(s): M17.0 - Bilateral primary osteoarthritis of knee Status: Acute Assessment and Plan: s/p Right TKA 10/10/22. Postoperative management per Ortho DVT prophylaxis per Ortho Care coordination following for rehab placement. Continue PT/OT. (2) Hypertension: Qualifiers: Hypertension type: essential hypertension Qualified Code(s): I10 - Essential (primary) hypertension Code(s): I10 - Essential (primary) hypertension Status: Chronic Assessment and Plan: Chronic, continue home antihypertensives. Monitor BP. Goal <140/90. (3) Anxiety: Code(s): F41.9 - Anxiety disorder, unspecified Status: Chronic Assessment and Plan: Chronic, resume clonazepam at home dose. Monitor mood. (4) Bipolar depression: Code(s): F31.9 - Bipolar disorder, unspecified Status: Chronic Assessment and Plan: Chronic, continue vilazodone, trazodone, and lamotrigine at home doses. Does not appear to be in acute exacerbation. (5) Toe fracture, right: Qualifiers: Encounter type: initial encounter Toe: lesser toe Fracture type: closed Phalanx: middle Fracture alignment: nondisplaced Qualified Code(s): S92.524A - Nondisplaced fracture of middle phalanx of right lesser toe(s), initial encounter for closed fracture Code(s): S92.911A - Unspecified fracture of right toe(s), initial encounter for closed fracture Status: Acute Assessment and Plan: Increased pain, swelling and ecchymosis to right foot and 3-5th digits. X-ray with minimally displaced fractures of 4th and 5th middle phalanges ortho notified- plan to eliu tape and postop shoe. Plan Thank you for allowing us to participate in your patient's care. Do not hesitate to call for questions or concerns. Time Spent With Patient Time with patient: 25 - 35 minutes Subjective Date/time seen: 10/11/22 09:29 Interval history: She reports it feels like her right knee is about to blow up. She has been taking oral analgesics with some help. She reports a fall approximately 2 weeks ago with injury to her right foot. She has been having some numbness to the bottom of her foot, as well as swelling and pain since that time. She has been able to walk on her foot since her fall, however. She did not get her foot evaluated or have imaging done previously. Review of Systems Review of Systems: All systems reviewed & are unremarkable except as noted in HPI and below Exam Narrative: General: No acute distress.? Adult female sitting up in the chair. Mental Status/Psych: Awake, alert and oriented x4 with clear speech. Pleasant and cooperative. Skin: warm, dry and intact. HEENT: Normocephalic. Sclera is non-icteric. Pupils equal and round. Oral mucosa pink and moist. Neck: No JVD. Heart: S1 and S2 regular rate and rhythm. No murmurs, gallops, or rubs auscultated. Chest: Respirations even and unlabored. Lung sounds are clear to auscultation without wheezes, rhonchi, or rales. Abdomen: Soft, obese and non-tender to palpation.? Bowel sounds present in all 4 quadrants. No guarding. Extremities:? Derrick wrap RLE clean, dry and intact. Point tenderness right 3rd metatarsal also with circumferential ecchymosis and edema. +2 edema right foot. Able to wiggle toes. Neurological: No focal deficits. Sensation intact all extremities Objective Data Vital Signs Vital Signs: Vital Signs - 24 hr 10/10/22 21:23 10/11/22 01:09 10/11/22 04:59 Temperature 97.6 F 97.8 F 97.7 F Pulse Rate 93 84 86 Respiratory Rate 20 16 18 Blood Pressure 126/70 133/59 L 140/69 Pulse Oximetry 96 98 97 Oxygen Delivery Oxygen Flow Rate 10/10/22 14:30 Temperature Pulse Rate R
[2022-10-11] MEDS: DEXTROSE 5%/0.45% SOD CHL 1,000 ML 80 ML IV CONT (09:36)
[2022-10-11] MEDS: hydroCHLOROthiazide 25 MG TABLET 50 MG PO (11:29)
[2022-10-11] MEDS: POTASSIUM CHLORIDE 20 MEQ ER TABLET PO (11:29)
[2022-10-11 11:46] VITALS: BP 166/90; PULSE 85; RESP 18; TEMP 36.5; O2SAT 97
--- NOTE | 2022-10-11 12:40 | SUR.PREOP ---
Paper documentation exists on this patient due to [employer] [facility] downtime on 10/10/22
[2022-10-11] MEDS: clonazePAM (*CRX) 0.5 MG TABLET 1 MG PO ×3 (12:56→21:11)
[2022-10-11 13:16] LABS: Hematocrit 39.5 % (37.0-47.0); Hemoglobin 12.2 g/dL (12.0-15.0); Mean Corpuscular HGB Conc 30.9 g/dl (32-36); Mean Corpuscular Hemoglobin 26.9 pg (26-34); Mean Platelet Volume 9.6 fl (7.4-10.4); Platelet Count Result 256 k/mm3 (150-375); Red Blood Count 4.54 M/mm3 (4.2-5.4); Red Cell Distribution Width 14.1 % (11.5-14.5); White Blood Count 13.6 K/mm3 (4.5-10.0)
[2022-10-11 13:27] LABS: Alanine Aminotransferase 24 U/L (6-35); Albumin Level 3.8 g/dL (3.5-5.1); Alkaline Phosphatase 107 U/L (38-126); Anion Gap 6 mmol/L (8-16); Aspartate Amino Transferase 23 U/L (14-36); Bilirubin,Total 0.4 mg/dL (0.2-1.3); Blood Urea Nitrogen 12 mg/dL (7-17); Calcium 8.4 mg/dL (8.4-10.2); Carbon Dioxide 26 mmol/L (22-30); Chloride 104 mmol/L (98-107); Estimated CRCL calculation 73 ml/min; Estimated Glomerular Filt Rate > 60; Glucose 136 mg/dL (65-110); Potassium 3.8 mmol/L (3.4-5.0); Sodium 136 mmol/L (137-145)
--- NOTE | 2022-10-11 13:32 | WPDANESPN ---
Anes - Prog Note Post-Op Date/Time: 10/11/22 13:32 Vital Signs: Last Vital Signs Temp 36.5 C 10/11/22 11:46 Pulse 85 10/11/22 11:46 Resp 18 10/11/22 11:46 BP 166/90 H 10/11/22 11:46 Pulse Ox 97 10/11/22 11:46 O2 Del Method Room Air 10/11/22 09:44 O2 Flow Rate 3 10/10/22 14:30 Pain Score (VAS): 2 I/O: Intake & Output 10/10/22 10/11/22 10/11/22 23:59 07:59 15:59 Intake Total 1500 290 Output Total 750 Balance 1500 -460 Laboratory Tests 10/11/22 12:36 10/11/22 12:36 10/11/22 12:36 WBC 13.6 H RBC 4.54 Hgb 12.2 Hct 39.5 MCV 87.0 MCH 26.9 MCHC 30.9 L RDW 14.1 Plt Count 256 MPV 9.6 Sodium 136 L Potassium 3.8 Chloride 104 Carbon Dioxide 26 Anion Gap 6 L BUN 12 Creatinine 0.90 Estim Creat Clear Calc 73 Estimated GFR > 60 Glucose 136 H Calcium 8.4 Total Bilirubin 0.4 AST 23 ALT 24 Alkaline Phosphatase 107 Total Protein 7.0 Albumin 3.8 Patient Feedback: Patient satisfied with anesthetic care.
--- NOTE | 2022-10-11 16:01 | PM.PNORT ---
Progress Note: A&P Assessment and Plan (1) Toe fracture, right: Qualifiers: Encounter type: initial encounter Toe: lesser toe Fracture type: closed Phalanx: middle Fracture alignment: nondisplaced Qualified Code(s): S92.524A - Nondisplaced fracture of middle phalanx of right lesser toe(s), initial encounter for closed fracture Code(s): S92.911A - Unspecified fracture of right toe(s), initial encounter for closed fracture Status: Acute (2) S/P total knee arthroplasty: Code(s): Z96.659 - Presence of unspecified artificial knee joint Status: Acute (3) Osteoarthritis of knees, bilateral: Qualifiers: Osteoarthritis type: primary Qualified Code(s): M17.0 - Bilateral primary osteoarthritis of knee Code(s): M17.0 - Bilateral primary osteoarthritis of knee Status: Acute Plan The patient is status post right total knee arthroplasty postop day 1. She is undergoing physical therapy and pain control management. She is awaiting placement in rehab due to her current social situation she lives alone and needs help and support. She will be discharged to rehab as soon as a bed is available, she will follow-up with Dr. Olmos at 2 weeks postop for staple removal and wound recheck. As far as her 4th and 5th toes go, she has fractures of the 4th and 5th toes as described today at bedside I eliu tape the toes and placed her in a hard-soled shoe. She can weightbear as tolerated avoid rocking forward on her toes. She is already 2 weeks status post injury. We will follow this as well as an outpatient. The patient voiced understanding and agrees with above plan. Otherwise looks good status post total knee arthroplasty. Subjective Subjective Date/Time Seen: 10/11/22 16:01 Patient is postop day 1 status post right total knee arthroplasty. Appears to be doing well in no acute distress pain well controlled tolerating physical therapy well. She was complaining of some foot and toe pain she states 2 weeks ago she had stubbed her toes but never sought evaluation. She asked to have x-rays this was done today this revealed fractures of the base of the 4th proximal phalanx right foot as well as the middle phalanx of the 5th toe right foot. She has pain and tenderness throughout 2nd through 5th toes with some bruising after slipping on the stairs and stabbing or toes. Overall alignment otherwise looks good. Today at bedside her toes were eliu-taped and she was given a hard-soled shoe for support. She is otherwise comfortable. As far as her knee goes she had a right total knee arthroplasty yesterday things are going well with this. Denies any other significant complaints tolerating p.o. well. Review of Systems Review of Systems: Ten point review of systems otherwise negative Exam Narrative: On exam the patient is noted be in no acute distress alert oriented x3. Normal mood and affect. Right knee incision is clean and dry tolerating physical therapy well. Calves are benign neurovascular she is intact. Right foot shows some 2nd 3rd toe ecchymosis tender through the 2nd through 5th toes overall alignment is anatomic no angular or rotational deformity is noted. X-rays demonstrate fractures as described in the HPI. Skin is intact neurovascularly she is intact. Objective Data Vital Signs Vital Signs: Vital Signs - 24 hr 10/10/22 21:23 10/11/22 01:09 10/11/22 04:59 Temperature 36.4 C 36.6 C 36.5 C Pulse Rate 93 84 86 Respiratory Rate 20 16 18 Blood Pressure 126/70 133/59 L 140/69 Pulse Oximetry 96 98 97 Oxygen Delivery 10/11/22 09:44 10/11/22 11:46 Temperature 36.5 C Pulse Rate 85 Respiratory Rate 18 Blood Pressure 166/90 H Pulse Oximetry 97 Oxygen Delivery Room Air Intake/Output Intake/Output: Intake & Output 10/08/22 10/09/22 10/10/22 10/11/22 23:59 23:59 23:59 23:59 Intake Total 1790 Output Total 750 Balance 1040 Meds/Results Med
[2022-10-11 20:07] VITALS: BP 155/85; PULSE 95; RESP 18; TEMP 36.6; O2SAT 100
[2022-10-11] MEDS: traZODone HCL 50 MG TABLET 100 MG PO (21:13)
[2022-10-11] MEDS: lamoTRIgine 100 MG TABLET 200 MG PO (21:14)
[2022-10-12] MEDS: HYDROcodone/acetaminophen (*CRX) 7.5-325 MG TABLET 1 TAB PO ×6 (01:03→20:52)
[2022-10-12 05:05] VITALS: BP 119/73; PULSE 100; RESP 18; TEMP 36.5; O2SAT 94
--- NOTE | 2022-10-12 07:44 | PM.IMPN ---
Progress Note: A&P Assessment and Plan (1) Osteoarthritis of knees, bilateral: Qualifiers: Osteoarthritis type: primary Qualified Code(s): M17.0 - Bilateral primary osteoarthritis of knee Code(s): M17.0 - Bilateral primary osteoarthritis of knee Status: Acute Assessment and Plan: s/p Right TKA 10/10/22. Postoperative management per Ortho DVT prophylaxis per Ortho Care coordination following for rehab placement. Continue PT/OT. 10/12/22 POD2 (2) Hypertension: Qualifiers: Hypertension type: essential hypertension Qualified Code(s): I10 - Essential (primary) hypertension Code(s): I10 - Essential (primary) hypertension Status: Chronic Assessment and Plan: Chronic, continue home HCTZ. Monitor BP. Goal <140/90. (3) Anxiety: Code(s): F41.9 - Anxiety disorder, unspecified Status: Chronic Assessment and Plan: Chronic, continue clonazepam at home dose. Monitor mood. (4) Bipolar depression: Code(s): F31.9 - Bipolar disorder, unspecified Status: Chronic Assessment and Plan: Chronic, continue vilazodone, trazodone, and lamotrigine at home doses. Does not appear to be in acute exacerbation. (5) Toe fracture, right: Qualifiers: Encounter type: initial encounter Fracture alignment: nondisplaced Fracture type: closed Phalanx: middle Toe: lesser toe Qualified Code(s): S92.524A - Nondisplaced fracture of middle phalanx of right lesser toe(s), initial encounter for closed fracture Code(s): S92.911A - Unspecified fracture of right toe(s), initial encounter for closed fracture Status: Acute Assessment and Plan: Increased swelling and ecchymosis to right foot and tenderness to palpation 2-5th digits. X-ray with minimally displaced fractures of 4th and 5th middle phalanges eliu taped and postop shoe applied per Ortho. WBAT right foot. Plan Thank you for allowing us to participate in your patient's care. Do not hesitate to call for questions or concerns. Time Spent With Patient Time with patient: 15 - 25 minutes Subjective Date/time seen: 10/12/22 07:44 Interval history: No new complaints or overnight events. Pain is tolerable with oral narcotics. No BM yet, but she is passing gas. Review of Systems Review of Systems: All systems reviewed & are unremarkable except as noted in HPI and below Exam Narrative: General: No acute distress.? Adult female lying in bed. Mental Status/Psych: Awake, alert and oriented x4 with clear speech. Pleasant and cooperative. Skin: warm, dry and intact. HEENT: Normocephalic. Sclera is non-icteric. Pupils equal and round. Oral mucosa pink and moist. Neck: No JVD. Heart: S1 and S2 regular rate and rhythm. No murmurs, gallops, or rubs auscultated. Chest: Respirations even and unlabored. Lung sounds are clear to auscultation without wheezes, rhonchi, or rales. Abdomen: Soft, obese and non-tender to palpation.? Bowel sounds present in all 4 quadrants. No guarding. Extremities:? RLE +1 edema, no erythema. Right knee incision with jo well approximated and without erythema or discharge. Dry gauze and mesh wrap in place. Tenderness right 3rd-5th digitsl also with circumferential ecchymosis and mild edema 2nd digit. Able to wiggle toes. Neurological: No focal deficits. Sensation intact all extremities Objective Data Vital Signs Vital Signs: Vital Signs - 24 hr 10/11/22 09:44 10/11/22 11:46 10/11/22 20:07 Temperature 97.7 F 98 F Pulse Rate 85 95 Respiratory Rate 18 18 Blood Pressure 166/90 H 155/85 H Pulse Oximetry 97 100 Oxygen Delivery Room Air 10/12/22 05:05 Temperature 97.7 F Pulse Rate 100 Respiratory Rate 18 Blood Pressure 119/73 Pulse Oximetry 94 Oxygen Delivery Intake/Output Intake/Output: Intake & Output 10/09/22 10/10/22 10/11/22 10/12/22 23:59 23:59 23:59 23:59 Intake [place]
[2022-10-12] MEDS: hydroCHLOROthiazide 25 MG TABLET 50 MG PO (08:56)
[2022-10-12] MEDS: CHOLECALCIFEROL 1,000 UNITS TABLET 2000 UNITS PO (08:56)
[2022-10-12] MEDS: POTASSIUM CHLORIDE 20 MEQ ER TABLET PO (08:56)
[2022-10-12] MEDS: clonazePAM (*CRX) 0.5 MG TABLET 1 MG PO ×4 (08:58→20:52)
--- NOTE | 2022-10-12 12:13 | PM.PNORT ---
Progress Note: A&P Assessment and Plan (1) S/P total knee arthroplasty: Code(s): Z96.659 - Presence of unspecified artificial knee joint Status: Acute (2) Toe fracture, right: Qualifiers: Encounter type: initial encounter Toe: lesser toe Fracture type: closed Phalanx: middle Fracture alignment: nondisplaced Qualified Code(s): S92.524A - Nondisplaced fracture of middle phalanx of right lesser toe(s), initial encounter for closed fracture Code(s): S92.911A - Unspecified fracture of right toe(s), initial encounter for closed fracture Status: Acute Plan Patient stable postop day 2 going slow in physical therapy due to some postoperative pain otherwise unremarkable. She will be discharged to rehab facility tomorrow, working on pain control measures and physical therapy today. Patient will follow-up with Dr. Olmos at her prescheduled 2 week postoperative appointment. Patient was instructed to call the office for any problems difficulties or questions she voiced understanding and agrees with the above plan. Okay to discharge per Orthopedic standpoint. Also the patient's right foot toe fractures are stable eliu taped she is wearing a hard-soled shoe minor discomfort noted here otherwise everything looks good. Subjective Subjective Date/Time Seen: 10/12/22 12:13 Patient is doing well postop day 2 having some postoperative pain but nothing too severe. We are waiting on transfer to an [facility] rehab facility, tentative schedule is for her to go there tomorrow. In the meantime we will work on pain control measures and physical therapy. She has no other complaints today. Review of Systems Review of Systems: Ten point review of systems otherwise negative Exam Narrative: On exam the patient is noted be in no acute distress alert oriented x3. Normal mood and affect. Patient was up ambulating with a walker with assistance and therapy just now. Vital signs are stable she is afebrile neurovascular she is intact wound looks good clean and dry healing well calves benign. Moderate postoperative pain noted by her the patient going very slowly in therapy otherwise no complaints. 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 No neurovascular deficits or malalignment is noted. Objective Data Vital Signs Vital Signs: Vital Signs - 24 hr 10/11/22 20:07 10/12/22 05:05 10/12/22 08:00 Temperature 36.6 C 36.5 C Pulse Rate 95 100 Respiratory Rate 18 18 Blood Pressure 155/85 H 119/73 Pulse Oximetry 100 94 Oxygen Delivery Room Air Intake/Output Intake/Output: Intake & Output 10/09/22 10/10/22 10/11/22 10/12/22 23:59 23:59 23:59 23:59 Intake Total 2290 490 Output Total 750 Balance 1540 490 Meds/Results Medications: Active Medications Generic Name Dose Route Start Last Admin Trade Name Freq PRN Reason Stop Dose Admin Hydrocodone Bitart/Acetaminophen 1 tab 10/11/22 01:00 10/12/22 08:58 Hydrocodone/Acetaminophen (*Crx) 7.5-325 Mg Tablet PO 1 tab Q4HR JUAN Administration Clonazepam 1 mg 10/11/22 13:00 10/12/22 08:58 Clonazepam (*Crx) 0.5 Mg Tablet PO 1 mg QID JUAN Administration Hydrochlorothiazide 50 mg 10/11/22 09:35 10/12/22 08:56 Hydrochlorothiazide 25 Mg Tablet PO 50 mg DAILY JUAN Administration Lamotrigine 200 mg 10/11/22 21:00 10/11/22 21:14 Lamotrigine 100 Mg Tablet PO 200 mg HS JUAN Administration Miscellaneous Information 0 each 10/11/22 00:01 Viibryd Nonformulary - Please Send Home Med To Pharmacy To Be Verified Prior To Use XX 11/10/22 00:00 CLARIFY JUAN Morphine Sulfate 2 mg 10/11/22 06:39 Morphine Sulfate (*Crx) 2 Mg/Ml Inj IV PUSH Q4H PRN Pain Rated 7-10 Non-Formulary Medication 40 mg 10/12/22 09:00 Vilazodone [Viibryd] PO 11/11/22 08:59 DAILY JUAN Potassium Chloride 20 meq 10/11
--- NOTE | 2022-10-12 15:53 | PCPTNOTE ---
On 10/12/22, the student, GUERLINE Graham, provided care and completed [facility] documentation on this patient. I have reviewed the student's documentation and agree with the findings.
[2022-10-12 20:10] VITALS: O2SAT 98
[2022-10-12 20:39] VITALS: BP 134/71; PULSE 102; RESP 16; TEMP 36.7; O2SAT 98
[2022-10-12] MEDS: lamoTRIgine 100 MG TABLET 200 MG PO (20:52)
[2022-10-12] MEDS: traZODone HCL 50 MG TABLET 100 MG PO (20:52)
[2022-10-13] MEDS: HYDROcodone/acetaminophen (*CRX) 7.5-325 MG TABLET 1 TAB PO ×5 (00:54→16:00)
[2022-10-13 05:54] VITALS: BP 137/72; PULSE 96; RESP 14; TEMP 36.6; O2SAT 95
[2022-10-13] MEDS: CHOLECALCIFEROL 1,000 UNITS TABLET 2000 UNITS PO (08:33)
[2022-10-13] MEDS: clonazePAM (*CRX) 0.5 MG TABLET 1 MG PO ×3 (08:33→16:00)
[2022-10-13] MEDS: POTASSIUM CHLORIDE 20 MEQ ER TABLET PO (08:34)
[2022-10-13] MEDS: hydroCHLOROthiazide 25 MG TABLET 50 MG PO (08:35)
--- NOTE | 2022-10-13 11:37 | PCOTNOTE ---
Attempted to see pt for Occupational Therapy treatment this AM. Pt would like to attempt later due to just getting back into bed and needing to rest.
--- NOTE | 2022-10-13 14:22 | PCPTNOTE ---
Treatment not completed at this time due to patient working with GIRALDO. Patient has orders to discharge to SNF today.
[2022-10-13 14:37] LABS: EDCOVIDSCREEN Negative (Negative)
--- NOTE | 2022-10-13 14:37 | PM.IMPN ---
Progress Note: A&P Assessment and Plan (1) Osteoarthritis of knees, bilateral: Qualifiers: Osteoarthritis type: primary Qualified Code(s): M17.0 - Bilateral primary osteoarthritis of knee Code(s): M17.0 - Bilateral primary osteoarthritis of knee Status: Acute Assessment and Plan: s/p Right TKA 10/10/22. Postoperative management per Ortho DVT prophylaxis per Ortho Care coordination following for rehab placement. Continue PT/OT. (2) Hypertension: Qualifiers: Hypertension type: essential hypertension Qualified Code(s): I10 - Essential (primary) hypertension Code(s): I10 - Essential (primary) hypertension Status: Chronic Assessment and Plan: Chronic, continue home HCTZ. Monitor BP. Goal <140/90. Stable on current medications. (3) Anxiety: Code(s): F41.9 - Anxiety disorder, unspecified Status: Chronic Assessment and Plan: Chronic, continue clonazepam at home dose. No s/s acute anxiety. (4) Bipolar depression: Code(s): F31.9 - Bipolar disorder, unspecified Status: Chronic Assessment and Plan: Chronic, continue vilazodone, trazodone, and lamotrigine at home doses. Does not appear to be in acute exacerbation. (5) Toe fracture, right: Qualifiers: Encounter type: initial encounter Toe: lesser toe Fracture type: closed Phalanx: middle Fracture alignment: nondisplaced Qualified Code(s): S92.524A - Nondisplaced fracture of middle phalanx of right lesser toe(s), initial encounter for closed fracture Code(s): S92.911A - Unspecified fracture of right toe(s), initial encounter for closed fracture Status: Acute Assessment and Plan: Increased swelling and ecchymosis to right foot and tenderness to palpation 2-5th digits. X-ray with minimally displaced fractures of 4th and 5th middle phalanges eliu taped and postop shoe applied per Ortho. WBAT right foot. Plan Patient is stable for discharge from a medical standpoint. Thank you for allowing us to participate in your patient's care. Do not hesitate to call for questions or concerns. Time Spent With Patient Time with patient: 15 - 25 minutes Subjective Date/time seen: 10/13/22 14:37 Interval history: She had physical therapy early this morning and does not think she had a long enough wait for her pain meds to kick in, so she was not up to the chair very long today. No BM today, but she is passing flatus. No abd pain, nausea or emesis Review of Systems Review of Systems: All systems reviewed & are unremarkable except as noted in HPI and below Exam Narrative: General: No acute distress.? Adult female lying in bed. Mental Status/Psych: Awake, alert and oriented x4 with clear speech. Pleasant and cooperative. Skin: warm, dry and intact. HEENT: Normocephalic. Sclera is non-icteric. Pupils equal and round. Oral mucosa pink and moist. Neck: No JVD. Heart: S1 and S2 regular rate and rhythm. No murmurs, gallops, or rubs auscultated. Chest: Respirations even and unlabored. Lung sounds are clear to auscultation without wheezes, rhonchi, or rales. Abdomen: Soft, obese and non-tender to palpation.? Bowel sounds present in all 4 quadrants. No guarding. Extremities:? RLE +1 edema, no erythema. Right knee incision with jo well approximated with mild blanching erythema, normothermic and no discharge. Dry gauze and mesh wrap in place. 3rd-5th digits eliu taped. Neurological: No focal deficits. Sensation intact all extremities Objective Data Vital Signs Vital Signs: Vital Signs - 24 hr 10/12/22 20:39 10/12/22 20:10 10/13/22 05:54 Temperature 98.1 F 97.9 F Pulse Rate 102 H 96 Respiratory Rate 16 14 Blood Pressure 134/71 137/72 Pulse Oximetry 98 98 95 Oxygen Delivery Room Air 10/13/22 08:00 Temperature Pulse Rate Respiratory Rate Blood Pressure Pulse Oximetry Oxygen Delivery Room Air
--- NOTE | 2022-10-15 13:20 | DS_ITS ---
DATE OF DISCHARGE: The patient is a 57-year-old female who saw Dr. Olmos regarding her right knee. The patient had advanced primary osteoarthritis, right knee joint. The patient underwent a right total knee arthroplasty performed by Dr. Olmos on 10/10/2022. The patient was kept overnight for pain control and postoperative care. She was having some pain control issues on postop day 1, having trouble getting up ambulating, otherwise, was feeling well. Pain medication was adjusted accordingly and she did better with time and treatment. Postop day 2, she was improving. However, she was awaiting placement in a rehab facility due to her social situation. She would require help as she lives alone and had no one there at home to help her with her rehab recovery. The patient was placed in a rehab facility in [place], [place]. The patient was ultimately discharged on postop day 3 on 10/13/2022, with the following discharge instructions. The patient was up ambulating independently with a walker, weightbearing as tolerated, and was to have outpatient physical therapy for total knee protocol. She will keep the wound clean and dry. Watch for evidence of drainage or infection. Call the office immediately if anything looked abnormal and we discussed this in detail. She was to work on range of motion and strengthening exercises per physical therapy. The patient was to be discharged with a general diet. She was in stable condition. She was discharged with Xarelto 10 mg daily for a total postoperative course of 10 days. When this is complete, she will go to aspirin 325 mg b.i.d. x1 month. She was also discharged with [place] 7.5 mg every 6 hours p.r.n. severe pain. She was also to continue with her current outpatient medications. The patient was to follow up 2 weeks postop for staple removal and wound recheck. If she was still in the rehab facility at that time, she would let us know and we will have the rehab facility remove the jo for her and we would coordinate followup after that. The patient's vital signs were stable. She is afebrile. Neurovascularly, she is intact. Wound was clean and dry. Calves are benign. She was tolerating p.o. well upon discharge. No other postop issues were noted. The patient was instructed to call the office immediately for any problems, difficulties, or questions. She voiced understanding and agreed to the above plan in the discharge summary on behalf of Dr. Raman Olmos. Jian I MT: Anurag
== END 2022-10-13 17:17 | DRG 470 ==
LOC: ANHSURGERY 20:08 → ANH3MED 22:32
PROVIDERS: Nurse Practitioner Family; Admitting Provider Orthopaedic Surgery; PCP Family Medicine; Visit Provider Orthopaedic Surgery
PROC: (CPT 27447; principal; 2022-10-10 07:30)
DX: M17.0 Bilateral primary osteoarthritis of knee (principal); I10 Essential (primary) hypertension; F31.9 Bipolar disorder, unspecified; Z20.822 Contact with and (suspected) exposure to COVID-19; K21.9 Gastro-esophageal reflux disease without esophagitis; F41.9 Anxiety disorder, unspecified; R73.03 Prediabetes; S92.911A Unspecified fracture of right toe(s), initial encounter for closed fracture; X58.XXXA Exposure to other specified factors, initial encounter; Z90.49 Acquired absence of other specified parts of digestive tract; Z87.891 Personal history of nicotine dependence
CPT/HCPCS: 36415; 73560; 73630; 80053; 85027; 87426; 97110; 97116; 97161; 97165; 97530; 97535; A9270; C1713; C1776; C9803; J0330; J0690; J1100; J1170; J1885; J2250; J2405; J2704; J2795; J3010; J3370

== ENCOUNTER 2022-10-13 22:33 | Emergency (ER) | payer MEDICARE, MEDICAID, SELFPAY ==
--- NOTE | ~2022-10-13 | XR_ITS ---
XR knee RT 3V DATE: 10/13/2022 23:01 INDICATION: Fall. Status post arthroplasty 1-2 weeks ago TECHNIQUE: 3 views COMPARISON: 01/09/2017 right knee FINDINGS: There are skin jo at the anterior aspect of the knee. Status post right total knee art hroplasty with patellar resurfacing. No fracture or dislocation, periosteal reaction or bone destruct ion is detected. No joint effusion is evident. IMPRESSION: Recent right total knee arthroplasty. No fracture or dislocation or joint effusion is rashida dent. Reviewed, dictated and finalized at location A. IMPRESSION: Recent right total knee arthroplasty. No fracture or dislocation or joint effusion is evident.
[2022-10-13 22:37] VITALS: BP 137/81; PULSE 105; RESP 18; TEMP 36.6; O2SAT 96
--- NOTE | 2022-10-13 23:08 | ED.GENADULT ---
HPI - General Adult General Chief complaint: Fall Stated complaint: fall, R foot pain Time Seen by Provider: 10/13/22 22:50 Source: patient Mode of arrival: ambulatory Limitations: no limitations History of Present Illness HPI narrative: This is a 57-year-old female who is status post day 3 of right total knee arthroplasty and coming to the ED from her rehab facility for a fall. Patient states she was trying to transfer from the wheelchair to bed and did not have any breaks on the wheelchair. She states the wheelchair flew back and she fell onto her butt and right side. States she had a little bit of initial pain to the right knee so she took her oxycodone and states that she is not in any pain now. Denies any further site of pain or injury. Denies head injury or LOC. She states that she does not want to go back to the rehab facility that she was at because she is unsatisfied with her care. Related Data Home Medications Medication Instructions Recorded Confirmed lamotrigine 200 mg tablet 200 mg PO HS 02/16/20 10/09/22 (Lamictal) trazodone 100 mg tablet 100 mg PO HS 02/16/20 10/01/22 vilazodone 40 mg tablet (Viibryd) 40 mg PO DAILY 02/16/20 10/01/22 xmkryegf-pyl-htcrp acid 500 1 tablet PO DAILY 05/16/22 10/01/22 mcg-lycopene 300 mcg-lutein 250 mcg tablet naproxen sodium 220 mg tablet 220 mg PO BID PRN Pain 05/16/22 10/01/22 (Aleve) triamcinolone acetonide 0.1 % 1 applic topical BID PRN SKIN 05/16/22 10/01/22 topical cream IRRITAION clonazepam 1 mg tablet 1 mg PO QID 09/13/22 10/01/22 hydrochlorothiazide 50 mg tablet 50 mg PO DAILY 09/13/22 10/01/22 Allergies Allergy/AdvReac Type Severity Reaction Status Date / Time latex Allergy Intermediate Itching Verified 10/01/22 08:56 codeine AdvReac Unknown Nausea and Verified 10/09/22 07:22 Vomiting hydrocodone AdvReac Nausea and Verified 10/01/22 08:56 Vomiting Review of Systems Review of Systems: CONSTITUTIONAL: Denies fever, chills, or sweats. EYES: Denies visual changes, redness, or discharge. ENT: Denies rhinorrhea, congestion, sore throat, or otalgia. CARDIOVASCULAR: Denies chest pain, palpitations, or edema. RESPIRATORY: Denies cough or dyspnea. GASTROINTESTINAL: Denies abdominal pain, nausea, vomiting, or diarrhea. GENITOURINARY: Denies dysuria or hematuria. SKIN: Denies rash or itching. MUSCULOSKELETAL: See HPI NEUROLOGIC: Denies headache, numbness, dizziness, or weakness. PSYCHIATRIC: Denies anxiety or depression. [facility] Past Medical History Medical History Anxiety Bipolar depression Hypertension Hypokalemia Osteoarthritis of knees, bilateral Prediabetes Surgical History Surgical History History of 08/1989 History of cholecystectomy 05/2013 History of endometrial ablation 01/2005 History of hemorrhoidectomy History of tonsillectomy 1973 Family History Family History Father Family history of emphysema Family history of thoracic aortic aneurysm Patient's father is Mother Hypertension Family history of arthritis Family history of congestive heart failure Grandparent Hypertension Family history of osteoarthritis Cerebrovascular accident Family history of aortic aneurysm Other Diabetes mellitus Family history of allergic disorder Family history of cardiovascular disease Social History Social History Smoking packs per day: 2.5 Smoking cigarettes per day: 50.0 Years smoked: 20 Smoking pack-years: 50.00 Smoking status: Former smoker Tobacco type: cigarettes Second hand tobacco smoke exposure: No Smoking end date: 04/29/01 Additional smoking assessment comments: PT DENIES ALL FORMS OF TOBACCO USE Alcohol intake: never Substance use: never Living arr
[2022-10-14 02:25] VITALS: BP 127/62; PULSE 78; RESP 18; O2SAT 99
== END 2022-10-14 02:27 | disposition home or self-care (01) ==
PROVIDERS: Emergency Provider Physician Assistant; PCP Family Medicine
DX: M25.561 Pain in right knee (principal); Z96.651 Presence of right artificial knee joint; I10 Essential (primary) hypertension; M17.0 Bilateral primary osteoarthritis of knee; R73.03 Prediabetes; F41.9 Anxiety disorder, unspecified; F31.9 Bipolar disorder, unspecified; Z90.49 Acquired absence of other specified parts of digestive tract; Z87.891 Personal history of nicotine dependence; W05.0XXA Fall from non-moving wheelchair, initial encounter
CPT/HCPCS: 73562; 99283

== ENCOUNTER 2022-10-14 15:00 | Observation (INO) | payer MEDICARE, MEDICAID, SELFPAY ==
[2022-10-14] VITALS (11 sets, daily range): BP systolic 132–149; BP diastolic 84–109; PULSE 105–130; RESP 14–21; TEMP 36.9–37.8; O2SAT 93–98; BMI 35.2
--- NOTE | ~2022-10-14 | CT_ITS ---
EXAMINATION: CT brain wo con DATE: 10/14/2022 16:09 INDICATION: Head injury. TECHNIQUE: Computed tomography (CT) of the head was performed without intravenous contrast. The dose- length product was 681.00 mGy-cm. Automated exposure control and iterative reconstruction technique w ere employed. COMPARISON: None FINDINGS: There is a chronic lacunar infarction of the left caudate nucleus. Brain parenchymal volume is normal for age. There are scattered mild periventricular and subcortical white matter changes, mo st likely related to small vessel ischemic disease (microangiopathy). No acute intracranial hemorrhag e, infarction, mass or mass effect. There is a small mucous retention cyst right maxillary sinus. Mas toids are pneumatized. No depressed skull fractures. IMPRESSION: 1. No acute intracranial abnormality. 2: Chronic left lacunar infarction. 3: Chronic age-related findings. Reviewed, dictated and finalized at location A.
--- NOTE | 2022-10-14 15:50 | ED.FALL ---
HPI - Fall General Chief Complaint: Fall Stated Complaint: frequent falls Time Seen by Provider: 10/14/22 15:04 History of Present Illness HPI Narrative: 57-year-old female present emerged department for evaluation after having multiple ground-level falls. Patient just had a right knee replacement done on Saturday. Patient was discharged to a rehab facility in [place] and patient felt this was unsafe for her. Patient did have a fall at home and was then evaluated in the emergency department. After being discharged from the emergency department patient went back home to her father's home and has had 3 falls at home patient states he has had no loss of consciousness and no injury but states he did strike her head during 1 of these falls. Patient is on Xarelto. Patient denies any change in her right knee pain. Patient feels that she is unable to care for herself at home and feels that ambulating on her own without assist using a walker is unsafe for her. Patient is requesting placement into a different rehab facility. Related Data Home Medications Medication Instructions Recorded Confirmed lamotrigine 200 mg tablet 200 mg PO HS 02/16/20 10/14/22 (Lamictal) trazodone 100 mg tablet 100 mg PO HS 02/16/20 10/14/22 vilazodone 40 mg tablet (Viibryd) 40 mg PO DAILY 02/16/20 10/14/22 zlqkwxih-gsq-pmbih acid 500 1 tablet PO DAILY 05/16/22 10/14/22 mcg-lycopene 300 mcg-lutein 250 mcg tablet naproxen sodium 220 mg tablet 220 mg PO BID PRN Pain 05/16/22 10/14/22 (Aleve) triamcinolone acetonide 0.1 % 1 applic topical BID PRN SKIN 05/16/22 10/14/22 topical cream IRRITAION clonazepam 1 mg tablet 1 mg PO QID 09/13/22 10/14/22 hydrochlorothiazide 50 mg tablet 50 mg PO DAILY 09/13/22 10/14/22 Allergies Allergy/AdvReac Type Severity Reaction Status Date / Time latex Allergy Intermediate Itching Verified 10/14/22 20:09 codeine AdvReac Unknown Nausea and Verified 10/14/22 20:09 Vomiting hydrocodone AdvReac Nausea and Verified 10/14/22 20:09 Vomiting Review of Systems Review of Systems: All systems reviewed & are unremarkable except as noted in HPI and below PMFSH Past Medical History Medical History (Updated 10/14/22 @ 22:01 by Jerrod Silva MD) Anxiety Bipolar depression Hypertension Hypokalemia Old lacunar stroke without late effect Noted on his CT on 10/14/2022. Osteoarthritis of knees, bilateral Prediabetes Surgical History Surgical History (Updated 10/14/22 @ 22:01 by Jerrod Silva MD) History of arthroplasty of right knee (10/10/22) History of (08/1989) History of cholecystectomy (05/2013) History of endometrial ablation (01/2005) History of hemorrhoidectomy History of tonsillectomy (1972) Family History Family History Father Family history of emphysema Family history of thoracic aortic aneurysm Patient's father is Mother Hypertension Family history of arthritis Family history of congestive heart failure Grandparent Hypertension Family history of osteoarthritis Cerebrovascular accident Family history of aortic aneurysm Other Diabetes mellitus Family history of allergic disorder Family history of cardiovascular disease Social History Social History (Updated 10/14/22 @ 18:02 by Annie Faust PA-C) Social History: Surrogate medical decision maker: Katlyn Peterson, mother. Code status: Full code. Smoking packs per day: 2.5 Smoking cigarettes per day: 50.0 Years smoked: 20 Smoking pack-years: 50.00 Smoking status: Former smoker Tobacco type: cigarettes Second hand tobacco smoke exposure: No Smoking end date: 04/29/01 Alcohol intake: never Substance use: never Living arrangements: alone Additional living arrangements comments: The patient lives in her own apartment. Spiritual care concerns: No Exam Narrative: APPEARANCE: Well appearing, no p
[2022-10-14 16:00] LABS: Basophils Absolute Auto 0.1 K/mm3 (0.0-0.1); Basophils Percent Auto 0.7 % (0.2-1.2); Eosinophils Absolute Auto 0.1 K/mm3 (0-0.3); Eosinophils Percent Auto 0.9 % (0-4.4); Hematocrit 38.6 % (37.0-47.0); Hemoglobin 12.2 g/dL (12.0-15.0); Immature Granulocyte Absolute 0.05 K/mm3 (0.00-0.031); Immature Granulocyte Percent A 0.5 % (0-0.5); Lymphocytes Absolute Auto 1.64 K/mm3 (0.9-3.2); Lymphocytes Percent Auto 14.9 % (18.3-44.2); Mean Corpuscular HGB Conc 31.6 g/dl (32-36); Mean Corpuscular Hemoglobin 27.4 pg (26-34); Mean Corpuscular Volume 86.5 fl (80-100); Mean Platelet Volume 9.1 fl (7.4-10.4); Monocytes Absolute Auto 0.8 K/mm3 (0.1-0.6); Monocytes Percent Auto 7.5 % (2.6-8.5); Neutrophils Absolute Auto 8.3 K/mm3 (1.3-6.7); Neutrophils Percent Auto 75.5 % (45.5-73.1); Platelet Count Result 268 k/mm3 (150-375); Red Blood Count 4.46 M/mm3 (4.2-5.4); Red Cell Distribution Width 14.2 % (11.5-14.5)
[2022-10-14 16:10] LABS: Alanine Aminotransferase 17 U/L (6-35); Albumin Level 3.8 g/dL (3.5-5.1); Alkaline Phosphatase 104 U/L (38-126); Anion Gap 6 mmol/L (8-16); Aspartate Amino Transferase 21 U/L (14-36); Bilirubin,Total 0.9 mg/dL (0.2-1.3); Blood Urea Nitrogen 16 mg/dL (7-17); Calcium 8.7 mg/dL (8.4-10.2); Carbon Dioxide 33 mmol/L (22-30); Chloride 97 mmol/L (98-107); Estimated CRCL calculation 71 ml/min; Estimated Glomerular Filt Rate > 60; Glucose 110 mg/dL (65-110); Potassium 3.5 mmol/L (3.4-5.0); Sodium 136 mmol/L (137-145)
[2022-10-14 16:12] LABS: INR 1.4; Prothrombin Time 17.5 Seconds (11.1-14.7)
[2022-10-14 16:13] LABS: Partial Thromboplastin Time 40.1 SECONDS (22.3-36.8)
--- NOTE | 2022-10-14 17:45 | PM.IMHP ---
H&P: HPI History of Present Illness Date/Time: 10/14/22 18:15 Chief Complaint: Fall. Narrative: This is a 57-year-old female with osteoarthritis, hypertension, GERD, bipolar disorder, depression, and anxiety who presented to the emergency department for evaluation after a fall. The patient provides the following history. She is postoperative day 4 status post right total knee arthroplasty per Dr. Olmos and she was discharged to [facility] in [place] on Saturday. Not long after arriving to that facility she had to use the restroom and no staff were available to take her so she attempted to go by herself however she fell out of the wheelchair and landed on the floor. Per patient report she lay on the floor calling for help for quite some time before somebody came to help her. She had a friend come get her and that evening as she did not feel safe at that facility and she stated her dad's house overnight. She has had 3 falls since being at his house since last night, each time she fell down onto her buttocks but she did strike the back of her head in 1 of the falls. She is not sure sure why she is falling but she does seem to be unsure of herself when standing and using a walker. She also thinks that the oxycodone she has been taking is too strong and is making her sleepy. She denies lightheadedness, dizziness, chest pain, pleuritic pain, shortness a breath, focal weakness, and paresthesias. She has not had any loss of consciousness in the halls and denies sustaining injuries in the halls. She is being admitted in this setting as she does not feel that she is safe to go home. Review of Systems Review of Systems: Twelve systems were reviewed. She denies vertigo. No fever, chills, or sweats. No recent cold or flu symptoms. No chest or pleuritic pain. She denies nausea, vomiting, and diarrhea. No dysuria. Except as documented all other systems were reviewed and are negative. [facility] Past Medical History Medical History (Updated 10/14/22 @ 18:09 by Annie Faust PA-C) Anxiety Bipolar depression Hypertension Hypokalemia Old lacunar stroke without late effect Noted on his CT on 10/14/2022. Osteoarthritis of knees, bilateral Prediabetes Surgical History Surgical History (Updated 10/14/22 @ 18:09 by Annie Faust PA-C) History of arthroplasty of right knee (10/10/22) History of (08/1989) History of cholecystectomy (05/2013) History of endometrial ablation (01/2005) History of hemorrhoidectomy History of tonsillectomy (1972) Family History Family History Father Family history of emphysema Family history of thoracic aortic aneurysm Patient's father is Mother Hypertension Family history of arthritis Family history of congestive heart failure Grandparent Hypertension Family history of osteoarthritis Cerebrovascular accident Family history of aortic aneurysm Other Diabetes mellitus Family history of allergic disorder Family history of cardiovascular disease Social History Social History (Updated 10/14/22 @ 18:02 by Annie Faust PA-C) Social History: Surrogate medical decision maker: Katlyn Nicholas, mother. Code status: Full code. Smoking packs per day: 2.5 Smoking cigarettes per day: 50.0 Years smoked: 20 Smoking pack-years: 50.00 Smoking status: Former smoker Tobacco type: cigarettes Second hand tobacco smoke exposure: No Smoking end date: 04/29/01 Alcohol intake: never Substance use: never Living arrangements: alone Additional living arrangements comments: The patient lives in her own apartment. Spiritual care concerns: No Meds Home Medications and Allergies Home Medications Medication Instructions Recorded Confirmed Type lamotrigine 200 mg tablet 200 mg PO HS 02/16/20 10/09/22 History (Lamictal) trazodone 100 mg tablet 100 mg PO HS 02/16/20 10/01/22 History jaime
[2022-10-14] MEDS: HYDROcodone/acetaminophen (*CRX) 5-325 MG TABLET 1 TAB PO (18:39)
--- NOTE | 2022-10-14 18:49 | PCCCNOTE ---
Addendum entered by Columba Villegas RN 10/14/22 19:25: PASSR completed, Queued for review. Addendum entered by Columba Villegas RN 10/14/22 19:09: [facility]errals fax'd to [facility] as requested Original Note: Met with patient in ED H2 per referral, patient had [facility], per patient wheeled in but left in wheelchair in room. No one came to admit or assist her to bed. Continued to sit in wheelchair with no assistance. Patient tried to transfer herself to her bed but the wheelchair was not locked and she fell. She called out and it took awhile for anyone to come and help her. She signed herself out of the SNF and a friend picked her up and drove her to her Dad's house. Her Dad has a walker which she was using today but she still fell 3 times, patient knows that she needs rehab to get strong. Her parent's are in their 80s and she could hurt them if she falls or loses her balance. Provided IPAD for searching SNF's, Patient able to review CMS scores, requests referrals to [facility] first choices, [facility] 2nd choice and [facility] 3rd choice.
[2022-10-14] MEDS: lamoTRIgine 100 MG TABLET 200 MG PO (22:12)
[2022-10-14] MEDS: clonazePAM (*CRX) 0.5 MG TABLET 1 MG PO (22:12)
[2022-10-14] MEDS: traZODone HCL 50 MG TABLET 100 MG PO (22:12)
--- NOTE | 2022-10-14 23:26 | ADMGEN ---
This patient, Rosalinda Ambrose, was admitted to Medical Room 346-01. Patient/family oriented to hospital policies and general routines including ID bracelet, bed and alarms, visiting hours, pain management, procedures, bathroom and other care routines, personal items, smoking policy, room service/diet, and visiting hours. Information on how to activate the Rapid Response Team has been discussed. Patient/Family are encouraged to report perceived risks to care and to ask questions if they do not understand what they are told or what they should do.
[2022-10-15 05:16] VITALS: BP 130/75; PULSE 99; RESP 20; TEMP 36.9; O2SAT 98
[2022-10-15 06:30] LABS: Basophils Absolute Auto 0.1 K/mm3 (0.0-0.1); Basophils Percent Auto 0.6 % (0.2-1.2); Eosinophils Absolute Auto 0.2 K/mm3 (0-0.3); Eosinophils Percent Auto 2.6 % (0-4.4); Hematocrit 35.1 % (37.0-47.0); Immature Granulocyte Absolute 0.04 K/mm3 (0.00-0.031); Immature Granulocyte Percent A 0.5 % (0-0.5); Lymphocytes Absolute Auto 2.13 K/mm3 (0.9-3.2); Lymphocytes Percent Auto 24.3 % (18.3-44.2); Mean Corpuscular HGB Conc 31.3 g/dl (32-36); Mean Corpuscular Hemoglobin 27.4 pg (26-34); Mean Corpuscular Volume 87.3 fl (80-100); Mean Platelet Volume 9.2 fl (7.4-10.4); Monocytes Absolute Auto 0.8 K/mm3 (0.1-0.6); Monocytes Percent Auto 9.6 % (2.6-8.5); Neutrophils Absolute Auto 5.5 K/mm3 (1.3-6.7); Neutrophils Percent Auto 62.4 % (45.5-73.1); Platelet Count Result 243 k/mm3 (150-375); Red Blood Count 4.02 M/mm3 (4.2-5.4); Red Cell Distribution Width 14.4 % (11.5-14.5); White Blood Count 8.8 K/mm3 (4.5-10.0)
[2022-10-15 06:43] LABS: Anion Gap 3 mmol/L (8-16); Blood Urea Nitrogen 16 mg/dL (7-17); Calcium 8.3 mg/dL (8.4-10.2); Carbon Dioxide 34 mmol/L (22-30); Chloride 100 mmol/L (98-107); Estimated CRCL calculation 80 ml/min; Estimated Glomerular Filt Rate > 60; Glucose 109 mg/dL (65-110); Magnesium 2.3 mg/dL (1.6-2.3); Potassium 3.1 mmol/L (3.4-5.0); Sodium 137 mmol/L (137-145)
[2022-10-15 09:00] VITALS: PULSE 99; RESP 20; O2SAT 98
[2022-10-15] MEDS: OPTI-GEN TAB 1 TABLET PO (09:04)
[2022-10-15] MEDS: POTASSIUM CHLORIDE 20 MEQ ER TABLET PO (09:04)
[2022-10-15] MEDS: hydroCHLOROthiazide 25 MG TABLET 50 MG PO (09:04)
[2022-10-15] MEDS: PANTOPRAZOLE 40 MG TABLET PO ×2 (09:08→17:53)
[2022-10-15] MEDS: clonazePAM (*CRX) 0.5 MG TABLET 1 MG PO ×3 (09:10→17:52)
--- NOTE | 2022-10-15 10:30 | PM.DS ---
DS: Admitting Diagnosis Discharge Date 10/15/22 1030 Admitting Diagnosis Recurrent falls, status post right knee replacement DS: Discharge Diagnosis Discharge Diagnosis (1) Recurrent falls: Code(s): R29.6 - Repeated falls Status: Acute (2) Status post right knee replacement: Code(s): Z96.651 - Presence of right artificial knee joint Status: Acute (3) Hypertension: Qualifiers: Hypertension type: essential hypertension Qualified Code(s): I10 - Essential (primary) hypertension Code(s): I10 - Essential (primary) hypertension Status: Chronic (4) Bipolar depression: Code(s): F31.9 - Bipolar disorder, unspecified Status: Chronic (5) Anxiety: Code(s): F41.9 - Anxiety disorder, unspecified Status: Chronic (6) Old lacunar stroke without late effect: Code(s): Z86.73 - Personal history of transient ischemic attack (TIA), and cerebral infarction without residual deficits Status: Acute Plan The patient presented to the emergency department for evaluation of 4 falls in the last 2 days. She is postoperative day 4, status post right total knee arthroplasty and she reports to me that she did well with physical therapy using a walker and gait belt while in the hospital. She was discharged to [facility] for rehab but left that facility the same day because she felt unsafe there after she had a fall trying to get herself up to the bathroom. She has fallen 3 other time since she was brought to her father's house last night. She is being admitted in this setting as she feels unsafe and she is here that she is going to keep falling. She sustained no injuries in the falls. Brain CT showed an incidental finding of an old lacunar infarction, known to the patient. I do not think that this has anything to do with her falls but it may deserve further workup as an outpatient. Blood pressures have been stable. Check orthostatic vital signs. Limit narcotics as she feels this may be a contributing factor. PT/OT consulted. She was told that she absolutely cannot get up by herself and she expresses understanding. Her home medications will be reviewed and resumed as appropriate. DS: Summary Hospital Course Hospital Course: Patient is a 57-year-old female with a past medical history of osteoarthritis, hypertension, GERD, bipolar disease, depression and anxiety who presented to the emergency department for evaluation after a fall. Patient recently had a right knee replacement and was discharged to [facility]. Unfortunately she had multiple falls air so she did the against medical advised due to feeling unsafe. Patient went to her step dad's house where she fell 3 times on the floor. She states that most of this is related to the walker as she did not have wheeled walker and she also stated there is carpet. Amongst multiple complaints that she does have she stated that she was found on the floor and had to have EMS bring her in. She did not sustain any injuries however she did state that she had the back of her head which did cause some like dizziness. CT of the head was negative for any acute findings. Patient stated that she feels like her medications are being given wrong and does have specific instructions about her medications. She also stated that her pain is a 5 to 6/10. Which she stated that there is pain to the back of her calf. She is also stating that she is having a lack of appetite and she is just not hungry. She also thinks that something is wrong with the [place] that she has been getting. Currently labs and vital signs are stable. Patient is stable for discharge and will be going to rehab at [facility]. She denies any current chest pain, shortness a breath, nausea, vomiting, diarrhea constipation. Status at Discharge Functional status at discharge: uses cane/walker Overall status at discharge: patient is progressing back to baseline Time Spe
[2022-10-15 11:30] LABS: Appearance Urine Clear (Clear); Bacteria Urine Rare /hpf; Bilirubin Urine Negative (Negative); Blood Urine Negative (Negative); Color Urine Dark Yellow (Yellow); Glucose Urine UA Negative (Negative); Ketones Urine Trace mg/dL (Negative); Leukocyte Esterase Ur 1+ LEU/UL (Negative); Mucus Urine Present /lpf; Nitrate Urine Negative (Negative); Non Pathogenic Casts 0-2; Protein Urine Trace mg/dL (Negative); Specific Grav Ur 1.024 (1.001-1.035); Squamous Epithelial Cell Urine Occasional /hpf (Few)
[2022-10-15 11:33] LABS: Add Urine Microscopic? YES
--- NOTE | 2022-10-15 13:50 | PCPTNOTE ---
On 10/15/22, the student, [Sharlene Ratliff], provided care and completed [facility] documentation on this patient. I have reviewed the student's documentation and agree with the findings.
[2022-10-15 14:00] VITALS: BP 133/55; PULSE 96; RESP 14; TEMP 36.9; O2SAT 97
[2022-10-15 14:57] VITALS: BP 134/76
--- NOTE | 2022-10-15 15:03 | PHAR ---
Home medication Viibryd 40mg tablets identified in pharmacy and returned to [address] [place] [id number]
== END 2022-10-15 19:11 ==
LOC: ANHED 15:27 → ANH3MED 18:45
PROVIDERS: Physician Assistant; Admitting Provider Chiropractor; Emergency Provider Emergency Medicine; PCP Family Medicine; Visit Provider Internal Medicine
DX: R29.6 Repeated falls (principal); S09.90XA Unspecified injury of head, initial encounter; W18.30XA Fall on same level, unspecified, initial encounter; Z96.651 Presence of right artificial knee joint; F41.9 Anxiety disorder, unspecified; F31.9 Bipolar disorder, unspecified; Z86.73 Personal history of transient ischemic attack (TIA), and cerebral infarction without residual deficits; M17.12 Unilateral primary osteoarthritis, left knee; R73.03 Prediabetes; D72.829 Elevated white blood cell count, unspecified; K21.9 Gastro-esophageal reflux disease without esophagitis; E87.8 Other disorders of electrolyte and fluid balance, not elsewhere classified; Z99.89 Dependence on other enabling machines and devices; Z87.891 Personal history of nicotine dependence; Z79.01 Long term (current) use of anticoagulants; Z79.1 Long term (current) use of non-steroidal anti-inflammatories (NSAID); Z79.52 Long term (current) use of systemic steroids; Z79.899 Other long term (current) drug therapy; Z82.61 Family history of arthritis; Z82.3 Family history of stroke
CPT/HCPCS: 36415; 70450; 80048; 80053; 81001; 83735; 85025; 85610; 85730; 87086; 87088; 97110; 97161; 97165; 97535; 99285; A9270; G0378

== ENCOUNTER 2022-10-15 19:49 | Inpatient (IN) | payer MEDICARE, MEDICAID, SELFPAY ==
--- NOTE | ~2022-10-15 | US_ITS ---
EXAMINATION: US venous doppler LE RT DATE: 10/16/2022 09:59 INDICATION: Right lower limb pain and swelling post recent total knee arthroplasty. TECHNIQUE: Grayscale ultrasound images without and with compression and Doppler ultrasound images of the right lower extremity veins were obtained. COMPARISON: 11/10/2004 FINDINGS: There is noncompressible dhedt-eso-gsai deep venous thrombosis in one of the paired right posterior t ibial veins. The second right posterior tibial vein is patent. The visualized portions of right commo n femoral vein, profunda (deep) femoral vein, femoral vein, popliteal vein, peroneal veins, gastrocne mius vein and greater saphenous vein outflow are patent. IMPRESSION: 1. Sdwda-uwm-ulel deep venous thrombosis in one of the paired right posterior tibial veins. Reviewed, dictated and finalized at location A. IMPRESSION: 1. Kzfcf-tdz-pdul deep venous thrombosis in one of the paired right posterior tibial veins.
[2022-10-15 19:50] VITALS: BMI 34.8
--- NOTE | 2022-10-15 20:33 | ADMGEN ---
This patient, Rosalinda Ambrose, was admitted to 2nd Floor Room 207-2. Patient/family oriented to hospital policies and general routines including ID bracelet, bed and alarms, visiting hours, pain management, procedures, bathroom and other care routines, personal items, smoking policy, room service/diet, and visiting hours. Information on how to activate the Rapid Response Team has been discussed. Patient/Family are encouraged to report perceived risks to care and to ask questions if they do not understand what they are told or what they should do.
[2022-10-15] MEDS: clonazePAM (*CRX) 0.5 MG TABLET 1 MG PO (22:10)
[2022-10-15] MEDS: lamoTRIgine 100 MG TABLET 200 MG PO (22:11)
[2022-10-15] MEDS: traZODone HCL 50 MG TABLET 100 MG PO (22:11)
[2022-10-15] MEDS: traMADol HCL (*CRX) 50 MG TABLET PO (22:12)
[2022-10-15 22:41] VITALS: PULSE 96; RESP 17; O2SAT 96
[2022-10-16] VITALS: BP 141/74; PULSE 96; RESP 17; TEMP 36.8; O2SAT 96
[2022-10-16] MEDS: POTASSIUM CHLORIDE 20 MEQ ER TABLET PO (05:47)
[2022-10-16] MEDS: PANTOPRAZOLE 40 MG TABLET PO (05:47)
[2022-10-16 07:53] VITALS: BP 132/72; PULSE 80; RESP 14; TEMP 36.7; O2SAT 93
--- NOTE | 2022-10-16 07:54 | PM.IMHP ---
H&P: HPI History of Present Illness Date/Time: 10/16/22 07:54 Chief Complaint: Status post right knee replacement here for rehab, strengthening, and increased mobility admitted to a swing bed Narrative: Patient is a 57-year-old female with a past medical history of osteoarthritis, hypertension, GERD, bipolar disease, depression and anxiety who is being admitted to a swing bed for rehab.? Patient recently had a right knee replacement on 10/10/[address] Olmos. Post op she was discharged to SNF at [facility], however, was not enthralled with the facility and signed out AMA related to multiple falls and not feeling safe at that facility. She went to her step [facility] house and was continuing to have falls and decided that she need to go back to the ED for reevaluation and placement into a different facility. Her last fall that she had was related to not having the right walker to get around safely. She stated that the walker did not have wheels on it and the carpet would keep snagging the walker and she was unable to walk and would just fall. She did not sustain any injuries at that time. She does endorse hitting her head, and CT of the brain was done and did not find any acute intracranial findings. She was also complaining about her pain medications stating that she felt they were too strong and causing her to be in a fog for most of the day when she took them, ([place] 7.5/325). She is also complaining of some pain to the back of the right calf of the surgical side. There is noted swelling. Currently pain is controlled, and medications have been switched to tramadol. She does also want to take her medications a certain way including protonix and clonazepam when she wakes up, Viibyrd and potassium 1 hour or so after with food, and then the other medications when she goes to bed. Currently she denies any chest pain, shortness of breath, nausea, vomiting, diarrhea, constipation, fevers, sweats chills, abdominal pain, headaches, visual or hearing changes, diarrhea, or constipation. Patient is being admitted to the hospitalist service for swing bed and physical rehabilitation. Review of Systems Review of Systems: All systems reviewed & are unremarkable except as noted in HPI and below PMFSH Past Medical History Medical History Anxiety Bipolar depression Hypertension Hypokalemia Old lacunar stroke without late effect Noted on his CT on 10/14/2022. Osteoarthritis of knees, bilateral Prediabetes Surgical History Surgical History History of arthroplasty of right knee (10/10/22) History of (08/1989) History of cholecystectomy (05/2013) History of endometrial ablation (01/2005) History of hemorrhoidectomy History of tonsillectomy (1972) Family History Family History Father Family history of emphysema Family history of thoracic aortic aneurysm Patient's father is Mother Hypertension Family history of arthritis Family history of congestive heart failure Grandparent Hypertension Family history of osteoarthritis Cerebrovascular accident Family history of aortic aneurysm Other Diabetes mellitus Family history of allergic disorder Family history of cardiovascular disease Social History Social History Social History: Surrogate medical decision maker: Katlyn Peterson, mother. Code status: Full code. Smoking packs per day: 2.5 Smoking cigarettes per day: 50.0 Years smoked: 20 Smoking pack-years: 50.00 Smoking status: Never smoker Tobacco type: cigarettes Second hand tobacco smoke exposure: No Smoking end date: 04/29/01 Alcohol intake: never Substance use: never Substance use type: does not use Lack of Transportation: No Lack of Food: Never
[2022-10-16] MEDS: hydroCHLOROthiazide 25 MG TABLET 50 MG PO (08:21)
[2022-10-16] MEDS: clonazePAM (*CRX) 0.5 MG TABLET 1 MG PO ×4 (08:21→20:14)
[2022-10-16] MEDS: RIVAROXABAN 10 MG TABLET PO (08:22)
[2022-10-16] MEDS: traMADol HCL (*CRX) 50 MG TABLET PO ×2 (08:24→16:49)
--- NOTE | 2022-10-16 10:02 | PC.NURSE ---
Patient had thrombus behind R knee. CEMENT SIDE LASTER order: continue current dose of Xarleto.
[2022-10-16 16:00] VITALS: BP 120/78; PULSE 92; RESP 16; TEMP 36.8; O2SAT 94
[2022-10-16 20:00] VITALS: PULSE 92; RESP 16; O2SAT 94
[2022-10-16] MEDS: lamoTRIgine 100 MG TABLET 200 MG PO (20:14)
[2022-10-16] MEDS: traZODone HCL 50 MG TABLET 100 MG PO (20:15)
[2022-10-17] VITALS: BP 138/77; PULSE 87; RESP 18; TEMP 36.2; O2SAT 90
--- NOTE | 2022-10-17 00:37 | PC.NURSE ---
On 10/17/22, the DATA CENTER SOLUTIONS ARCHITECT, [ Trang Gray], provided care and completed [facility] documentation on this patient. I have reviewed the DATA CENTER SOLUTIONS ARCHITECT's documentation and agree with the findings.
[2022-10-17 08:00] VITALS: BP 134/82; PULSE 86; RESP 14; TEMP 36.4; O2SAT 93
[2022-10-17] MEDS: clonazePAM (*CRX) 0.5 MG TABLET 1 MG PO ×4 (09:40→21:52)
[2022-10-17] MEDS: hydroCHLOROthiazide 25 MG TABLET 50 MG PO (09:40)
[2022-10-17] MEDS: POTASSIUM CHLORIDE 20 MEQ ER TABLET PO (09:40)
[2022-10-17] MEDS: RIVAROXABAN 10 MG TABLET PO (09:40)
[2022-10-17] MEDS: PANTOPRAZOLE 40 MG TABLET PO (09:41)
[2022-10-17] MEDS: traMADol HCL (*CRX) 50 MG TABLET PO ×2 (09:46→21:51)
[2022-10-17 16:00] VITALS: BP 136/74; PULSE 74; RESP 20; TEMP 36.1; O2SAT 95
[2022-10-17 20:00] VITALS: PULSE 74; RESP 20; O2SAT 95
[2022-10-17] MEDS: lamoTRIgine 100 MG TABLET 200 MG PO (21:53)
[2022-10-17] MEDS: traZODone HCL 50 MG TABLET 100 MG PO (21:53)
[2022-10-18] VITALS: BP 130/77; PULSE 90; RESP 16; TEMP 36.1; O2SAT 94
--- NOTE | 2022-10-18 05:24 | PC.NURSE ---
On 10/18/22, the MEDIA MONITOR, [ Trang Gray], provided care and completed [facility] documentation on this patient. I have reviewed the MEDIA MONITOR's documentation and agree with the findings.
[2022-10-18 08:00] VITALS: BP 113/75; PULSE 85; RESP 14; TEMP 36.4; O2SAT 93
[2022-10-18] MEDS: POTASSIUM CHLORIDE 20 MEQ ER TABLET PO (09:04)
[2022-10-18] MEDS: PANTOPRAZOLE 40 MG TABLET PO (09:04)
[2022-10-18] MEDS: clonazePAM (*CRX) 0.5 MG TABLET 1 MG PO ×4 (09:04→21:04)
[2022-10-18] MEDS: hydroCHLOROthiazide 25 MG TABLET 50 MG PO (09:04)
[2022-10-18] MEDS: RIVAROXABAN 10 MG TABLET PO (09:04)
[2022-10-18] MEDS: traMADol HCL (*CRX) 50 MG TABLET PO ×3 (09:05→21:05)
[2022-10-18 16:35] VITALS: BP 123/79; PULSE 83; RESP 16; TEMP 36.2; O2SAT 99
[2022-10-18 20:00] VITALS: PULSE 83; RESP 16; O2SAT 99
[2022-10-18] MEDS: lamoTRIgine 100 MG TABLET 200 MG PO (21:05)
[2022-10-18] MEDS: traZODone HCL 50 MG TABLET 100 MG PO (21:05)
[2022-10-19] VITALS: BP 124/78; PULSE 90; RESP 16; TEMP 36.4; O2SAT 96
[2022-10-19 08:00] VITALS: BP 129/79; PULSE 87; RESP 14; TEMP 36.4; O2SAT 91
[2022-10-19] MEDS: PANTOPRAZOLE 40 MG TABLET PO (09:25)
[2022-10-19] MEDS: hydroCHLOROthiazide 25 MG TABLET 50 MG PO (09:48)
[2022-10-19] MEDS: clonazePAM (*CRX) 0.5 MG TABLET 1 MG PO ×2 (09:48→13:11)
[2022-10-19] MEDS: traMADol HCL (*CRX) 50 MG TABLET PO ×2 (09:49→20:43)
[2022-10-19] MEDS: POTASSIUM CHLORIDE 20 MEQ ER TABLET PO (09:50)
[2022-10-19] MEDS: RIVAROXABAN 10 MG TABLET PO (09:51)
--- NOTE | 2022-10-19 14:50 | PHAR ---
verified pt home med Viibryd 40mg po daily.
[2022-10-19 16:35] VITALS: BP 114/80; PULSE 85; RESP 16; TEMP 36.3; O2SAT 94
[2022-10-19] MEDS: traZODone HCL 50 MG TABLET 100 MG PO (20:38)
[2022-10-19] MEDS: RIVAROXABAN 15 MG TABLET PO (20:38)
[2022-10-19] MEDS: lamoTRIgine 100 MG TABLET 200 MG PO (20:38)
[2022-10-20 08:00] VITALS: BP 130/82; PULSE 95; RESP 16; TEMP 36.6; O2SAT 93
[2022-10-20] MEDS: POTASSIUM CHLORIDE 20 MEQ ER TABLET PO (08:23)
[2022-10-20] MEDS: hydroCHLOROthiazide 25 MG TABLET 50 MG PO (08:24)
[2022-10-20] MEDS: RIVAROXABAN 15 MG TABLET PO ×2 (08:24→21:35)
[2022-10-20] MEDS: PANTOPRAZOLE 40 MG TABLET PO (08:24)
[2022-10-20] MEDS: traMADol HCL (*CRX) 50 MG TABLET PO ×2 (08:27→19:07)
[2022-10-20 16:00] VITALS: BP 116/78; PULSE 72; RESP 16; TEMP 36.4
[2022-10-20 20:00] VITALS: PULSE 72; RESP 16; O2SAT 93
[2022-10-20] MEDS: lamoTRIgine 100 MG TABLET 200 MG PO (21:34)
[2022-10-20] MEDS: traZODone HCL 50 MG TABLET 100 MG PO (21:34)
[2022-10-21] VITALS: BP 129/79; PULSE 83; RESP 16; TEMP 36.2; O2SAT 93
--- NOTE | 2022-10-21 06:36 | PC.NURSE ---
[employer] documentation verified and reviewed.
[2022-10-21 08:00] VITALS: BP 148/86; PULSE 86; RESP 18; TEMP 36.6; O2SAT 94
--- NOTE | 2022-10-21 08:45 | PM.IMPN ---
Progress Note: A&P Assessment and Plan (1) Status post right knee replacement: Code(s): Z96.651 - Presence of right artificial knee joint Status: Acute Assessment and Plan: S/P right knee replacement with Dr. Olmos on 10/10/22. Follow up with Orthopedics 2 weeks after discharge. PT and OT ordered fall precautions continue Xarelto per ortho surgery for DVT prophylaxis Tramadol for pain (2) DVT (deep venous thrombosis): Code(s): I82.409 - Acute embolism and thrombosis of unspecified deep veins of unspecified lower extremity Status: Acute Assessment and Plan: S/P Right total knee arthroplasty, DVT located in one of the paired right posterior tibial veins. Continue Xarelto 15 mg po BID. Pt. educated to report any dyspnea or CP immediately. Distal neurovascular status in RLE is intact. (3) Recurrent falls: Code(s): R29.6 - Repeated falls Status: Acute Assessment and Plan: See above Fall Precautions. (4) Toe fracture, right: Qualifiers: Encounter type: initial encounter Toe: lesser toe Fracture type: closed Phalanx: middle Fracture alignment: nondisplaced Qualified Code(s): S92.524A - Nondisplaced fracture of middle phalanx of right lesser toe(s), initial encounter for closed fracture Code(s): S92.911A - Unspecified fracture of right toe(s), initial encounter for closed fracture Status: Acute Assessment and Plan: Noted at last discharge Stable per xray review Pain medications ordered (5) Bipolar depression: Code(s): F31.9 - Bipolar disorder, unspecified Status: Chronic Assessment and Plan: Continue home medications. Monitor and trend mood Appears stable at this time (6) Anxiety: Code(s): F41.9 - Anxiety disorder, unspecified Status: Chronic Assessment and Plan: Continue home medications Time Spent With Patient Time with patient: 15 - 25 minutes Subjective Date/time seen: 10/21/22 08:45 Interval history: This 57 year old female patient was examined at the bedside in interval assessment after being admitted to the SWB program at [facility]. She has had a favorable course thus far with regards to participation and improvement with her Physical therapy. She has had a complication of a DVT in the Right calf, of which she is taking Xarelto 15 mg po Q12 hrs for. She has not had any signs of acute infection and her pain is well controlled with the prescribed medication. She denies any new complaints today such as CP, dyspnea, N/V/D, headache, lightheadedness or dizziness. Her jo are due to be removed on 10/23/22. Review of Systems Review of Systems: All systems reviewed & are unremarkable except as noted in HPI and below Exam Const: General: comfortable and no acute distress Other: Sitting at the bedside at this time in no acute distress. HENMT: Face/Nose/Sinus: Normal nares present and no epistaxis Mouth: Yes moist mucous membranes Eyes: General: appearance normal, both eyes and all related structures Sclera: sclerae normal Neck: Neck: supple and no JVD Resp: Effort & Inspection: normal respiratory effort Auscultation: clear to auscultation bilaterally Cardio: Rate: regular rate Rhythm: regular rhythm Heart sounds: no gallops, no murmurs and no rubs GI: Inspection: non-distended GI Palp: Yes Soft to palpation, No Tenderness to palpation present (GI) and No Guarding due to palpation present (GI) Auscultation: normal bowel sounds Skin: General skin exam: normal color and no erythema Lesions: no lesions noted Rashes: no rashes noted Wounds: wounds noted (Surgical wound R. knee, midline, C/D/I with jo open to air.) Neuro: Speech: normal speech Motor exam (neuro): 5/5 motor strength present throughout and Normal motor muscle tone present throughout Sensory Exam: normal sensation Extrem: General: edema (RLE. Known DVT)
[2022-10-21] MEDS: hydroCHLOROthiazide 25 MG TABLET 50 MG PO (09:03)
[2022-10-21] MEDS: RIVAROXABAN 15 MG TABLET PO ×2 (09:03→21:21)
[2022-10-21] MEDS: POTASSIUM CHLORIDE 20 MEQ ER TABLET PO (09:04)
[2022-10-21] MEDS: PANTOPRAZOLE 40 MG TABLET PO (09:04)
[2022-10-21] MEDS: traMADol HCL (*CRX) 50 MG TABLET PO ×2 (09:09→20:19)
[2022-10-21 15:49] VITALS: BP 139/77; PULSE 96; RESP 16; TEMP 36.3; O2SAT 94
[2022-10-21 20:00] VITALS: PULSE 96; RESP 16; O2SAT 94
[2022-10-21] MEDS: traZODone HCL 50 MG TABLET 100 MG PO (21:20)
[2022-10-21] MEDS: lamoTRIgine 100 MG TABLET 200 MG PO (21:20)
[2022-10-22] VITALS: BP 115/66; PULSE 92; RESP 16; TEMP 36.2; O2SAT 91
--- NOTE | 2022-10-22 06:33 | PC.NURSE ---
[facility] [employer] documentation verified and reviewed.
[2022-10-22 07:55] VITALS: BP 119/77; PULSE 95; RESP 18; TEMP 36.2; O2SAT 93
[2022-10-22] MEDS: RIVAROXABAN 15 MG TABLET PO ×2 (08:55→20:55)
[2022-10-22] MEDS: POTASSIUM CHLORIDE 20 MEQ ER TABLET PO (08:55)
[2022-10-22] MEDS: clonazePAM (*CRX) 0.5 MG TABLET 1 MG PO ×2 (08:55→21:37)
[2022-10-22] MEDS: PANTOPRAZOLE 40 MG TABLET PO (08:55)
[2022-10-22] MEDS: hydroCHLOROthiazide 25 MG TABLET 50 MG PO (08:55)
[2022-10-22 16:35] VITALS: BP 136/86; PULSE 100; RESP 18; TEMP 36.6; O2SAT 96
[2022-10-22] MEDS: traMADol HCL (*CRX) 50 MG TABLET PO ×2 (17:12→21:37)
--- NOTE | 2022-10-22 20:13 | PC.NURSE ---
Patient up in chair watching something on her phone. Alert and oriented, able to verbalize needs. Call light and belongings within reach. Patient pleasant and talkative. Ambulates with gait belt, walker, stand by assist. Continent of bowel and bladder.
[2022-10-22] MEDS: lamoTRIgine 100 MG TABLET 200 MG PO (20:55)
[2022-10-22] MEDS: traZODone HCL 50 MG TABLET 100 MG PO (20:55)
[2022-10-23] VITALS: BP 105/51; PULSE 88; RESP 20; TEMP 36.1; O2SAT 95
--- NOTE | 2022-10-23 00:15 | PC.NURSE ---
Pt asleep and no signs of discomfort noted. side rails up x2 and call [place] within reach.
--- NOTE | 2022-10-23 02:08 | PC.NURSE ---
Pt asleep and respirations are even and unlabored; No signs of shortness of breath noted.
[2022-10-23 05:21] LABS: Hematocrit 35.7 % (35.0-49.0); Hemoglobin 11.1 g/dL (12.0-15.0); Mean Corpuscular HGB Conc 31.1 g/dL (32.0-36.0); Mean Corpuscular Hemoglobin 27.3 pg (27.0-31.0); Mean Corpuscular Volume 87.9 fL (78.0-102.0); Mean Platelet Volume 9.2 fl (9.2-11.8); Platelet Count Result 298 K/mm3 (150-420); Red Blood Count 4.06 M/mm3 (4.20-5.40); Red Cell Distribution Width 14.2 % (11.6-14.4); White Blood Count 8.8 K/mm3 (4.8-10.8)
[2022-10-23 05:39] LABS: Alanine Aminotransferase 20 U/L (14-59); Albumin Level 2.7 g/dL (3.4-5.0); Alkaline Phosphatase 88 U/L (46-116); Anion Gap 5 mmol/L (8-16); Aspartate Amino Transferase 14 U/L (15-37); Bilirubin,Total 0.3 mg/dL (0.00-1.00); Blood Urea Nitrogen 13 mg/dL (7-18); Calcium 8.7 mg/dL (8.5-10.1); Carbon Dioxide 34 mmol/L (21-32); Chloride 102 mmol/L (98-108); Estimated CRCL calculation 58 ml/min; Estimated Glomerular Filt Rate 51; Glucose 108 mg/dL (70-99); Osmolality Calculated 293 mOsm/kg (285-295); Potassium 3.2 mmol/L (3.5-5.1); Sodium 141 mmol/L (136-145); Total Protein 6.2 g/dL (6.4-8.2)
--- NOTE | 2022-10-23 06:27 | PC.NURSE ---
Pt up to BR with the walker, gait belt and standby assist of one; Pt voided and returned to bed with assist of one, walker and gait belt.
[2022-10-23 08:00] VITALS: BP 134/70; PULSE 95; RESP 16; TEMP 36.2; O2SAT 94
[2022-10-23] MEDS: hydroCHLOROthiazide 25 MG TABLET 50 MG PO (09:19)
[2022-10-23] MEDS: clonazePAM (*CRX) 0.5 MG TABLET 1 MG PO ×2 (09:19→20:38)
[2022-10-23] MEDS: RIVAROXABAN 15 MG TABLET PO ×2 (09:19→20:50)
[2022-10-23] MEDS: PANTOPRAZOLE 40 MG TABLET PO (09:19)
[2022-10-23] MEDS: POTASSIUM CHLORIDE 20 MEQ ER TABLET PO (09:19)
[2022-10-23] MEDS: POTASSIUM CHLORIDE 20 MEQ ER TABLET 40 MEQ PO (09:24)
--- NOTE | 2022-10-23 09:53 | PM.EVENT ---
Event Note Event Note Event Note: Patient due to have jo removed today. Per surgeon, ok for us to remove. 31 jo removed with good wound closure remaining through full ROM. Patient ok to shower using shower chair for stability/fatigue sake. Labs were drawn this morning and potassium still low at 3.2. Additional potassium 40 mEQ ordered x1. Patient believes she takes 40 mEQ daily at home. No shortness of breath, chest pain or dizziness. Will monitor next lab draw and consider increasing to 40 mEQ daily if remains low.
[2022-10-23 16:35] VITALS: BP 128/82; PULSE 96; RESP 18; TEMP 36.4; O2SAT 95
[2022-10-23] MEDS: traZODone HCL 50 MG TABLET 100 MG PO (20:36)
[2022-10-23] MEDS: lamoTRIgine 100 MG TABLET 200 MG PO (20:37)
[2022-10-23] MEDS: traMADol HCL (*CRX) 50 MG TABLET PO (20:39)
[2022-10-23 23:05] VITALS: BP 120/76; PULSE 97; RESP 16; TEMP 36.5; O2SAT 94
--- NOTE | 2022-10-24 07:01 | P.PNIM_ITS ---
Progress Note: A&P Assessment and Plan (1) Status post right knee replacement: Code(s): Z96.651 - Presence of right artificial knee joint Status: Acute Assessment and Plan: * S/P right knee replacement with Dr. Olmos on 10/10/22. * Follow up with Orthopedics 2 weeks after discharge. * PT and OT ordered * fall precautions * continue Xarelto per ortho surgery for DVT prophylaxis * Tramadol for pain * Doing well, walking the unit * [place] removed on 10/23/22, incision with no signs of redness (2) DVT (deep venous thrombosis): Qualifiers: DVT location: lower extremity Affected thrombotic vein of extremity: tibial Chronicity: acute Laterality: right Qualified Code(s): I82.441 - Acute embolism and thrombosis of right tibial vein Code(s): I82.409 - Acute embolism and thrombosis of unspecified deep veins of unspecified lower extremity Status: Acute Assessment and Plan: * S/P Right total knee arthroplasty, DVT located in one of the paired right posterior tibial veins. * Continue Xarelto 15 mg po BID. * Pt. educated to report any dyspnea or CP immediately. * Distal neurovascular status in RLE is intact. * Pulses remain present * 2+ pitting edema * Oscar almendarez added (3) Recurrent falls: Code(s): R29.6 - Repeated falls Status: Acute Assessment and Plan: * See above * Fall Precautions. (4) Toe fracture, right: Qualifiers: Encounter type: initial encounter Toe: lesser toe Fracture type: closed Phalanx: middle Fracture alignment: nondisplaced Qualified Code(s): S92.524A - Nondisplaced fracture of middle phalanx of right lesser toe(s), initial encounter for closed fracture Code(s): S92.911A - Unspecified fracture of right toe(s), initial encounter for closed fracture Status: Acute Assessment and Plan: * Noted at last discharge * Stable per xray review * Pain medications ordered * Remains stable (5) Bipolar depression: Code(s): F31.9 - Bipolar disorder, unspecified Status: Chronic Assessment and Plan: * Continue home medications. * Monitor and trend mood * Better * Continue current medications * Pressurizer about importance of remaining on current medication at discharge (6) Anxiety: Code(s): F41.9 - Anxiety disorder, unspecified Status: Chronic Assessment and Plan: * Continue home medications Time Spent With Patient Time: 38 minutes Time with patient: Greater than 35 minutes Subjective Date/time seen: 10/24/22 07:01 Interval history: Patient is doing better. She is complaining of not being hungry. She is having regular BMs. She is denying any chest pain, shortness of breath, nausea, vomiting, diarrhea, constipation, weakness, fatigue. It was reported that she has been able to walk around the unit. She is worried about steps at home. Care conference is tomorrow. Hopfully home soon. Review of Systems Review of Systems: All systems reviewed & are unremarkable except as noted in HPI and below Exam Narrative: General:? well-nourished, well-appearing 57-year-old female,? laying in bed, comfortable, NARD Neuro: awake, alert and oriented x4, speech clear, no focal neuro deficits noted HEENMT:? normocephalic, atraumatic, EOMI, sclerae
--- NOTE | 2022-10-24 07:01 | PM.IMPN ---
Progress Note: A&P Assessment and Plan (1) Status post right knee replacement: Code(s): Z96.651 - Presence of right artificial knee joint Status: Acute Assessment and Plan: S/P right knee replacement with Dr. Olmos on 10/10/22. Follow up with Orthopedics 2 weeks after discharge. PT and OT ordered fall precautions continue Xarelto per ortho surgery for DVT prophylaxis Tramadol for pain Doing well, walking the unit [place] removed on 10/23/22, incision with no signs of redness (2) DVT (deep venous thrombosis): Qualifiers: DVT location: lower extremity Affected thrombotic vein of extremity: tibial Chronicity: acute Laterality: right Qualified Code(s): I82.441 - Acute embolism and thrombosis of right tibial vein Code(s): I82.409 - Acute embolism and thrombosis of unspecified deep veins of unspecified lower extremity Status: Acute Assessment and Plan: S/P Right total knee arthroplasty, DVT located in one of the paired right posterior tibial veins. Continue Xarelto 15 mg po BID. Pt. educated to report any dyspnea or CP immediately. Distal neurovascular status in RLE is intact. Pulses remain present 2+ pitting edema Oscar almendarez added (3) Recurrent falls: Code(s): R29.6 - Repeated falls Status: Acute Assessment and Plan: See above Fall Precautions. (4) Toe fracture, right: Qualifiers: Encounter type: initial encounter Toe: lesser toe Fracture type: closed Phalanx: middle Fracture alignment: nondisplaced Qualified Code(s): S92.524A - Nondisplaced fracture of middle phalanx of right lesser toe(s), initial encounter for closed fracture Code(s): S92.911A - Unspecified fracture of right toe(s), initial encounter for closed fracture Status: Acute Assessment and Plan: Noted at last discharge Stable per xray review Pain medications ordered Remains stable (5) Bipolar depression: Code(s): F31.9 - Bipolar disorder, unspecified Status: Chronic Assessment and Plan: Continue home medications. 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 She is complaining of not being hungry. She is having regular BMs. She is denying any chest pain, shortness of breath, nausea, vomiting, diarrhea, constipation, weakness, fatigue. It was reported that she has been able to walk around the unit. She is worried about steps at home. Care conference is tomorrow. Hopfully home soon. Review of Systems Review of Systems: All systems reviewed & are unremarkable except as noted in HPI and below Exam Narrative: General:? well-nourished, well-appearing 57-year-old female,? laying in bed, comfortable, NARD Neuro: awake, alert and oriented x4, speech clear, no focal neuro deficits noted HEENMT:? normocephalic, atraumatic, EOMI, sclerae anicteric, moist oral mucosa Respiratory:? Clear to auscultation bilaterally without crackles, rhonchi or wheezes, nonlabored breathing Cardio: regular rate, regular rhythm with S1-S2 Abdomen:? nondistended, normoactive bowel sounds, soft, nontender to palpation Extremities: 2+ pitting edema in the right lower extremity, no erythema, or tenderness to palpation, DP pulses 2+ bilaterally, right leg slight swelling. Incision is clean and dry, with no signs of infection. Skin: no rashes or lesions, warm and dry, 2+ pitting edema of the right leg. incision is clean and dry no signs of infection P
[2022-10-24 08:00] VITALS: BP 118/52; PULSE 85; RESP 14; TEMP 36.4; O2SAT 97
--- NOTE | 2022-10-24 08:12 | PHAR ---
Xarelto - received 2 doses of 15 mg Xarelto last evening. Spoke with Jonathon ALVA) - ok to continue with doses this am.
[2022-10-24] MEDS: PANTOPRAZOLE 40 MG TABLET PO (09:05)
[2022-10-24] MEDS: clonazePAM (*CRX) 0.5 MG TABLET 1 MG PO ×3 (09:05→21:22)
[2022-10-24] MEDS: hydroCHLOROthiazide 25 MG TABLET 50 MG PO (09:06)
[2022-10-24] MEDS: POTASSIUM CHLORIDE 20 MEQ ER TABLET PO (09:06)
[2022-10-24] MEDS: RIVAROXABAN 15 MG TABLET PO ×2 (09:06→21:22)
[2022-10-24] MEDS: traMADol HCL (*CRX) 50 MG TABLET PO ×2 (13:47→21:23)
[2022-10-24 15:55] VITALS: BP 151/74; PULSE 101; RESP 17; TEMP 36.1; O2SAT 98
[2022-10-24] MEDS: lamoTRIgine 100 MG TABLET 200 MG PO (21:23)
[2022-10-24] MEDS: traZODone HCL 50 MG TABLET 100 MG PO (21:23)
[2022-10-25] VITALS: BP 104/76; PULSE 84; RESP 18; TEMP 36.6; O2SAT 94
[2022-10-25 07:55] VITALS: BP 133/80; PULSE 100; RESP 16; TEMP 36.6; O2SAT 94
--- NOTE | 2022-10-25 08:34 | P.PNIM_ITS ---
Progress Note: A&P Assessment and Plan (1) Status post right knee replacement: Code(s): Z96.651 - Presence of right artificial knee joint Status: Acute Assessment and Plan: * S/P right knee replacement with Dr. Olmos on 10/10/22. * Follow up with Orthopedics 2 weeks after discharge. * PT and OT ordered * fall precautions * continue Xarelto per ortho surgery for DVT prophylaxis * Tramadol for pain * Doing well, walking the unit * [place] removed on 10/23/22, incision with no signs of redness * Plan for discharge in the a.m. (2) DVT (deep venous thrombosis): Qualifiers: DVT location: lower extremity Affected thrombotic vein of extremity: tibial Chronicity: acute Laterality: right Qualified Code(s): I82.441 - Acute embolism and thrombosis of right tibial vein Code(s): I82.409 - Acute embolism and thrombosis of unspecified deep veins of unspecified lower extremity Status: Acute Assessment and Plan: * S/P Right total knee arthroplasty, DVT located in one of the paired right posterior tibial veins. * Continue Xarelto 15 mg po BID. * Pt. educated to report any dyspnea or CP immediately. * Distal neurovascular status in RLE is intact. * Pulses remain present * 2+ pitting edema * Oscar almendarez added however patient refused (3) Recurrent falls: Code(s): R29.6 - Repeated falls Status: Acute Assessment and Plan: * See above * Fall Precautions. (4) Toe fracture, right: Qualifiers: Encounter type: initial encounter Toe: lesser toe Fracture type: closed Phalanx: middle Fracture alignment: nondisplaced Qualified Code(s): S92.524A - Nondisplaced fracture of middle phalanx of right lesser toe(s), initial encounter for closed fracture Code(s): S92.911A - Unspecified fracture of right toe(s), initial encounter for closed fracture Status: Acute Assessment and Plan: * Noted at last discharge * Stable per xray review * Pain medications ordered * Remains stable (5) Bipolar depression: Code(s): F31.9 - Bipolar disorder, unspecified Status: Chronic Assessment and Plan: * Continue home medications. * Monitor and trend mood * Better * Continue current medications * Manager Benefit about importance of remaining on current medication at discharge (6) Anxiety: Code(s): F41.9 - Anxiety disorder, unspecified Status: Chronic Assessment and Plan: * Continue home medications Time Spent With Patient Time: 36 minutes Time with patient: Greater than 35 minutes Subjective Date/time seen: 10/25/22 08:34 Interval history: Patient is lying in bed and has no complaints today. Spoke with the patient about going home tomorrow patient was in agreement. Patient does have everything she needs at home and stated that her friends are going home to get her apartment ready for discharge. Was able to sign her DME order for walker. Spoke with the patient about the walker and the need along with assessment. Patient will need a wheeled walker for gait stability, mobility, safety at home. [id number] was performed to assess this Need. Patient currently denies any chest pain, shortness of breath, nausea, vomiting, diarrhea or constipation. Review of Systems Review of Systems:
--- NOTE | 2022-10-25 08:34 | PM.IMPN ---
Progress Note: A&P Assessment and Plan (1) Status post right knee replacement: Code(s): Z96.651 - Presence of right artificial knee joint Status: Acute Assessment and Plan: S/P right knee replacement with Dr. Olmos on 10/10/22. Follow up with Orthopedics 2 weeks after discharge. PT and OT ordered fall precautions continue Xarelto per ortho surgery for DVT prophylaxis Tramadol for pain Doing well, walking the unit [place] removed on 10/23/22, incision with no signs of redness Plan for discharge in the a.m. (2) DVT (deep venous thrombosis): Qualifiers: DVT location: lower extremity Affected thrombotic vein of extremity: tibial Chronicity: acute Laterality: right Qualified Code(s): I82.441 - Acute embolism and thrombosis of right tibial vein Code(s): I82.409 - Acute embolism and thrombosis of unspecified deep veins of unspecified lower extremity Status: Acute Assessment and Plan: S/P Right total knee arthroplasty, DVT located in one of the paired right posterior tibial veins. Continue Xarelto 15 mg po BID. Pt. educated to report any dyspnea or CP immediately. Distal neurovascular status in RLE is intact. Pulses remain present 2+ pitting edema Oscar hose added however patient refused (3) Recurrent falls: Code(s): R29.6 - Repeated falls Status: Acute Assessment and Plan: See above Fall Precautions. (4) Toe fracture, right: Qualifiers: Encounter type: initial encounter Toe: lesser toe Fracture type: closed Phalanx: middle Fracture alignment: nondisplaced Qualified Code(s): S92.524A - Nondisplaced fracture of middle phalanx of right lesser toe(s), initial encounter for closed fracture Code(s): S92.911A - Unspecified fracture of right toe(s), initial encounter for closed fracture Status: Acute Assessment and Plan: Noted at last discharge Stable per xray review Pain medications ordered Remains stable (5) Bipolar depression: Code(s): F31.9 - Bipolar disorder, unspecified Status: Chronic Assessment and Plan: Continue home medications. Monitor and trend mood Better Continue current medications Utility Arborist about importance of remaining on current medication at discharge (6) Anxiety: Code(s): F41.9 - Anxiety disorder, unspecified Status: Chronic Assessment and Plan: Continue home medications Time Spent With Patient Time: 36 minutes Time with patient: Greater than 35 minutes Subjective Date/time seen: 10/25/22 08:34 Interval history: Patient is lying in bed and has no complaints today. Spoke with the patient about going home tomorrow patient was in agreement. Patient does have everything she needs at home and stated that her friends are going home to get her apartment ready for discharge. Was able to sign her DME order for walker. Spoke with the patient about the walker and the need along with assessment. Patient will need a wheeled walker for gait stability, mobility, safety at home. [id number] was performed to assess this Need. Patient currently denies any chest pain, shortness of breath, nausea, vomiting, diarrhea or constipation. Review of Systems Review of Systems: All systems reviewed & are unremarkable except as noted in HPI and below Exam Narrative: General:? well-nourished, well-appearing 57-year-old female,? laying in bed, comfortable, NARD Neuro: awake, alert and oriented x4, speech clear, no focal neuro deficits noted HEENMT:? normocephalic, atraumatic, EOMI, sclerae anicteric, moist oral mucosa Respiratory:? Clear to auscultation bilaterally without crackles, rhonchi or wheezes, nonlabored breathing Cardio: regular rate, regular rhythm with S1-S2 Abdomen:? nondistended, normoactive bowel sounds, soft, nontender to palpation Extremiti
[2022-10-25] MEDS: hydroCHLOROthiazide 25 MG TABLET 50 MG PO (08:35)
[2022-10-25] MEDS: RIVAROXABAN 15 MG TABLET PO ×2 (08:35→21:39)
[2022-10-25] MEDS: PANTOPRAZOLE 40 MG TABLET PO (08:36)
[2022-10-25] MEDS: POTASSIUM CHLORIDE 20 MEQ ER TABLET PO (08:37)
[2022-10-25] MEDS: clonazePAM (*CRX) 0.5 MG TABLET 1 MG PO ×3 (08:39→21:38)
--- NOTE | 2022-10-25 08:43 | P.DS_ITS ---
DS: Admitting Diagnosis Discharge Date 10/26/22 Admitting Diagnosis swing admission status post right knee replacement by Dr. Olmos for gait training, stability, improvement in mobility DS: Discharge Diagnosis Discharge Diagnosis (1) Status post right knee replacement: Code(s): Z96.651 - Presence of right artificial knee joint Status: Acute Assessment and Plan: * S/P right knee replacement with Dr. Olmos on 10/10/22. * Follow up with Orthopedics 2 weeks after discharge. * PT and OT ordered * fall precautions * continue Xarelto per ortho surgery for DVT prophylaxis * Tramadol for pain * Doing well, walking the unit * [place] removed on 10/23/22, incision with no signs of redness * Plan for discharge in the a.m. (2) DVT (deep venous thrombosis): Qualifiers: Affected thrombotic vein of extremity: tibial Chronicity: acute DVT location: lower extremity Laterality: right Qualified Code(s): I82.441 - Acute embolism and thrombosis of right tibial vein Code(s): I82.409 - Acute embolism and thrombosis of unspecified deep veins of unspecified lower extremity Status: Acute Assessment and Plan: * S/P Right total knee arthroplasty, DVT located in one of the paired right posterior tibial veins. * Continue Xarelto 15 mg po BID. * Pt. educated to report any dyspnea or CP immediately. * Distal neurovascular status in RLE is intact. * Pulses remain present * 2+ pitting edema * Oscar almendarez added however patient refused (3) Recurrent falls: Code(s): R29.6 - Repeated falls Status: Acute Assessment and Plan: * See above * Fall Precautions. (4) Toe fracture, right: Qualifiers: Encounter type: initial encounter Fracture alignment: nondisplaced Fracture type: closed Phalanx: middle Toe: lesser toe Qualified Code(s): S92.524A - Nondisplaced fracture of middle phalanx of right lesser toe(s), initial encounter for closed fracture Code(s): S92.911A - Unspecified fracture of right toe(s), initial encounter for closed fracture Status: Acute Assessment and Plan: * Noted at last discharge * Stable per xray review * Pain medications ordered * Remains stable (5) Bipolar depression: Code(s): F31.9 - Bipolar disorder, unspecified Status: Chronic Assessment and Plan: * Continue home medications. 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 Patient was admitted to [facility] for swing bed. Patient is status post right knee replacement. Patient at home was not taking her medications appropriately and upon arrival to [place] venous Doppler was performed and did show a right lower extremity DVT. Xarelto has been resumed at 50 mg p.o. b.i.d. currently right leg is still swollen with mild edema. Patient has done well with PT and OT and has been walking with a
--- NOTE | 2022-10-25 08:43 | PM.DS ---
DS: Admitting Diagnosis Discharge Date 10/26/22 Admitting Diagnosis swing admission status post right knee replacement by Dr. Olmos for gait training, stability, improvement in mobility DS: Discharge Diagnosis Discharge Diagnosis (1) Status post right knee replacement: Code(s): Z96.651 - Presence of right artificial knee joint Status: Acute Assessment and Plan: S/P right knee replacement with Dr. Olmos on 10/10/22. Follow up with Orthopedics 2 weeks after discharge. PT and OT ordered fall precautions continue Xarelto per ortho surgery for DVT prophylaxis Tramadol for pain Doing well, walking the unit [place] removed on 10/23/22, incision with no signs of redness Plan for discharge in the a.m. (2) DVT (deep venous thrombosis): Qualifiers: Affected thrombotic vein of extremity: tibial Chronicity: acute DVT location: lower extremity Laterality: right Qualified Code(s): I82.441 - Acute embolism and thrombosis of right tibial vein Code(s): I82.409 - Acute embolism and thrombosis of unspecified deep veins of unspecified lower extremity Status: Acute Assessment and Plan: S/P Right total knee arthroplasty, DVT located in one of the paired right posterior tibial veins. Continue Xarelto 15 mg po BID. Pt. educated to report any dyspnea or CP immediately. Distal neurovascular status in RLE is intact. Pulses remain present 2+ pitting edema Oscar hose added however patient refused (3) Recurrent falls: Code(s): R29.6 - Repeated falls Status: Acute Assessment and Plan: See above Fall Precautions. (4) Toe fracture, right: Qualifiers: Encounter type: initial encounter Fracture alignment: nondisplaced Fracture type: closed Phalanx: middle Toe: lesser toe Qualified Code(s): S92.524A - Nondisplaced fracture of middle phalanx of right lesser toe(s), initial encounter for closed fracture Code(s): S92.911A - Unspecified fracture of right toe(s), initial encounter for closed fracture Status: Acute Assessment and Plan: Noted at last discharge Stable per xray review Pain medications ordered Remains stable (5) Bipolar depression: Code(s): F31.9 - Bipolar disorder, unspecified Status: Chronic Assessment and Plan: Continue home medications. Monitor and trend mood Better Continue current medications Instrument Maker about importance of remaining on current medication at discharge (6) Anxiety: Code(s): F41.9 - Anxiety disorder, unspecified Status: Chronic Assessment and Plan: Continue home medications DS: Summary Hospital Course Hospital Course: Patient is a 57-year-old female with a past medical history anxiety, depression, GERD who presented to the ED at [facility] related to inability to remain mobile, frequent falls, and pain. Patient was admitted to [facility] for swing bed. Patient is status post right knee replacement. Patient at home was not taking her medications appropriately and upon arrival to [place] venous Doppler was performed and did show a right lower extremity DVT. Xarelto has been resumed at 50 mg p.o. b.i.d. currently right leg is still swollen with mild edema. Patient has done well with PT and OT and has been walking with a walker and perform stairs. Patient is comfortable with discharge at this time and feels that she is able to take care of herself at home. Spoke with her about care at home along with need for help. Patient stated that she had a lot of help and was able to plan for any easy transition back home. Currently patient denies any chest pain, shortness of breath, nausea, vomiting, diarrhea or constipation. [id number] was performed walker was ordered. Encourage patient to remain active at home. Currently patient is stable for discharge and has d
[2022-10-25 16:00] VITALS: BP 129/78; PULSE 96; RESP 16; TEMP 36.2; O2SAT 96
[2022-10-25 20:00] VITALS: PULSE 96; RESP 16; O2SAT 96
[2022-10-25] MEDS: traZODone HCL 50 MG TABLET 100 MG PO (21:39)
[2022-10-25] MEDS: traMADol HCL (*CRX) 50 MG TABLET PO (21:39)
[2022-10-25] MEDS: lamoTRIgine 100 MG TABLET 200 MG PO (21:39)
[2022-10-26] VITALS: BP 121/71; PULSE 92; RESP 17; TEMP 36.4; O2SAT 94
[2022-10-26 08:00] VITALS: BP 110/66; PULSE 95; RESP 16; TEMP 36.4; O2SAT 94
[2022-10-26] MEDS: clonazePAM (*CRX) 0.5 MG TABLET 1 MG PO (09:03)
[2022-10-26] MEDS: hydroCHLOROthiazide 25 MG TABLET 50 MG PO (09:03)
[2022-10-26] MEDS: PANTOPRAZOLE 40 MG TABLET PO (09:04)
[2022-10-26] MEDS: POTASSIUM CHLORIDE 20 MEQ ER TABLET PO (09:04)
[2022-10-26] MEDS: RIVAROXABAN 15 MG TABLET PO (09:05)
--- NOTE | 2022-10-26 09:07 | PM.DS ---
DS: Admitting Diagnosis Discharge Date 10/26/2022 Admitting Diagnosis Rehab, Weakness DS: Discharge Diagnosis Discharge Diagnosis (1) Status post right knee replacement: Code(s): Z96.651 - Presence of right artificial knee joint Status: Acute Assessment and Plan: S/P right knee replacement with Dr. Olmos on 10/10/22. Follow up with Orthopedics 2 weeks after discharge. PT and OT ordered fall precautions continue Xarelto per ortho surgery for DVT prophylaxis Tramadol for pain (2) DVT (deep venous thrombosis): Qualifiers: Affected thrombotic vein of extremity: tibial Chronicity: acute DVT location: lower extremity Laterality: right Qualified Code(s): I82.441 - Acute embolism and thrombosis of right tibial vein Code(s): I82.409 - Acute embolism and thrombosis of unspecified deep veins of unspecified lower extremity Status: Acute Assessment and Plan: S/P Right total knee arthroplasty, DVT located in one of the paired right posterior tibial veins. Continue Xarelto 15 mg po BID. Pt. educated to report any dyspnea or CP immediately. Distal neurovascular status in RLE is intact. (3) Recurrent falls: Code(s): R29.6 - Repeated falls Status: Acute Assessment and Plan: See above Fall Precautions. (4) Toe fracture, right: Qualifiers: Encounter type: initial encounter Fracture alignment: nondisplaced Fracture type: closed Phalanx: middle Toe: lesser toe Qualified Code(s): S92.524A - Nondisplaced fracture of middle phalanx of right lesser toe(s), initial encounter for closed fracture Code(s): S92.911A - Unspecified fracture of right toe(s), initial encounter for closed fracture Status: Acute Assessment and Plan: Noted at last discharge Stable per xray review Pain medications ordered (5) Bipolar depression: Code(s): F31.9 - Bipolar disorder, unspecified Status: Chronic Assessment and Plan: Continue home medications. Monitor and trend mood Appears stable at this time (6) Anxiety: Code(s): F41.9 - Anxiety disorder, unspecified Status: Chronic Assessment and Plan: Continue home medications DS: Summary Hospital Course Reason for hospitalization: Swing Rehab, Right knee replacement Hospital Course: This is a 57-year-old female being discharged from swing bed. Mrs. Ambrose has a past medical history of osteoarthritis, hypertension, GERD, bipolar disease, depression and anxiety. rehab.? Patientright knee replacement on 10/10/[address] Olmos[address] patient has participated in the swing where she has continued to make some slow progress currently she is going to go home. Patient has been deemed safe for she will have home health and have Physical therapy within the home pain has been since somewhat controlled vitals have remained within normal limits blood pressure 110/66, pulse is 95, respirations 16, temp 97.6?, 94% on room air last set of labs potassium 3.2, sodium 141, BUN 13, creatinine 1.11, RBCs 4.06, WBCs 8.8, hemoglobin 11.1, hematocrit was 35.7% patient has been educated on anticoagulations DVT prophylaxis appropriate walkers have been obtained patient denies any chest pain shortness of breath, vomiting diarrhea constipation fevers sweats abdominal pain, headaches, visual or hearing disturbances, will go home with all medications ordered to follow-up with primary care provider as well as Ortho. Time Spent with Patient Time attestation: Total time spent providing and/or coordinating discharge services: Exam Narrative: General:? well-nourished, well-appearing 57-year-old female,? laying in bed, comfortable, NARD Neuro: awake, alert and oriented x4, speech clear, no focal neuro deficits noted HEENMT:? normocephalic, atraumatic, EOMI, sclerae anicteric, moist oral mucosa Respiratory:? Clear to auscultation bilaterally without crackles, rhonchi or whe
--- NOTE | 2022-10-26 12:25 | PC.NURSE ---
Computer Hardware Developer went over discharge instructions with patient, with special attention to new orders for Xarelto. Patient was able to restate instructions for that particular drug. Patient voiced understanding with all discharge instructions. Personal belongings sent home with patient. Patient left unit in w/c accompanied by bond writer. Patient left hospital grounds in privately owned vehicle.
--- NOTE | 2022-11-05 15:15 | PC.NURSE ---
Pt states she received and understood her discharge instructions. Pt states they took great care of me .
== END 2022-10-26 12:25 | disposition home health service (06) | DRG 560 ==
PROVIDERS: Nurse Practitioner; Admitting Provider Internal Medicine; PCP Family Medicine; Visit Provider Internal Medicine
DX: Z47.1 Aftercare following joint replacement surgery (principal); I82.441 Acute embolism and thrombosis of right tibial vein; I97.89 Other postprocedural complications and disorders of the circulatory system, not elsewhere classified; Z96.651 Presence of right artificial knee joint; E87.6 Hypokalemia; I10 Essential (primary) hypertension; K21.9 Gastro-esophageal reflux disease without esophagitis; R29.6 Repeated falls; S92.524D Nondisplaced fracture of middle phalanx of right lesser toe(s), subsequent encounter for fracture with routine healing; F31.9 Bipolar disorder, unspecified; F41.9 Anxiety disorder, unspecified; Z87.891 Personal history of nicotine dependence; Z79.01 Long term (current) use of anticoagulants
CPT/HCPCS: 36415; 80053; 85027; 93971; 97110; 97161; 97165; 97530; 97535; A9270

== ENCOUNTER 2024-12-01 09:48 | Outpatient (CLI) | payer MEDICARE, MEDICAID, SELFPAY ==
--- NOTE | ~2024-12-01 | MR_ITS ---
EXAMINATION: MR abdomen wo/w con DATE: 12/01/2024 11:53 INDICATION: Liver disease TECHNIQUE: Magnetic resonance imaging (MRI) of the abdomen was performed without and with 19 mL Multi shabbir intravenous contrast. Sequences included coronal T2-weighted SS-FSE, coronal and axial FS 2D-F IESTA, axial STIR FSE, axial T2-weighted SS-FSE, axial T2-weighted FS SS-FSE, axial diffusion-weighte d SE, axial dual-echo T1-weighted FSPGR, and axial and coronal T1-weighted LAVA. Postcontrast axial T 1-weighted LAVA images were obtained in a time course. Postcontrast coronal T1-weighted LAVA images w ere obtained. COMPARISON: MR dated 02/25/2020 FINDINGS: Heart size is normal. No pericardial or pleural effusion. Slight decrease in size of a now 12 mm T2 h yperintense lesion with delayed enhancement with similar intensity to the aorta on the 5 minute and 1 0 minute delayed images consistent either a hemangioma or focal nodular hyperplasia, favor the former . Status post cholecystectomy. No intra or extrahepatic biliary ductal dilation. Spleen, pancreas, bi lateral adrenal glands and kidneys are normal. Visualized portions of bowels including the appendix a re normal. No pathologically enlarged abdominal lymphadenopathy. Bone marrow signal is normal through out. IMPRESSION: 1. Interval decrease in size of a now 1.1 cm hemangioma versus less likely focal nodular hyperplasia in the posterior right hepatic lobe. Reviewed, dictated and finalized at location A. IMPRESSION: 1. Interval decrease in size of a now 1.1 cm hemangioma versus less likely foca l nodular hyperplasia in the posterior right hepatic lobe.
== END 2024-12-01 09:49 | disposition home or self-care (01) ==
LOC: MICIMG 09:50
PROVIDERS: PCP Family Medicine; Visit Provider Family Medicine
DX: D18.09 Hemangioma of other sites (principal); K76.89 Other specified diseases of liver
CPT/HCPCS: 74183; A9577

== ENCOUNTER 2025-04-17 16:14 | Emergency (ER) | payer MEDICARE, MEDICAID, SELFPAY ==
--- OUTSIDE RECORDS SUMMARY | 2025-04-14 05:15 | XMS_ITS ---
Author Organization [facility] Information Assurance [facility] Address [address] [facility] [address] [place] [address] Care Team Providers Care Slab Lifting Supervisor Name Role Phone Aubrey FRAGOSO, Silas Primary Care Provider Kash Tong Unavailable [phone] REASON FOR VISIT Pt is having back spasm since Saturday Social History Sex Assigned At : Social History Observation Description Sex Assigned At Female Encounters Encounter Location Date Provider Diagnosis [facility] [employer] [facility] [address] [place] [address] 04/14/2025 Kash Rangel Plan Of Treatment Next Appt Details Provider Name:Sathish Chen, 05/18/2025 10:00:00 AM, [address], [address], [place], [address], Progress Notes * ALICE MCLAUGHLIN LDOB:[birth year] (59 yo F)Acc No.[id number]:04/14/2025 Patient: ALICE ACHARYA Provider: AUGUSTA TURNER :1965 A ge:59 Y S ex:Female Date:04/14/2025 [address] [id number] Pcp:Silas Villar Subjective: * Chief Complaints: * P t is having back spasm since Saturday Billing Information: * Procedure Codes: * Electronic signature of AUGUSTA Bunch on 04/17/2025 at 04:15 PM MANAGER PROPOSAL Sign off status: Pending * Provider: AUGUSTA TURNER Date: 1 06/15/2024 Generated for Anton Perez on: 1 06/18/2024 04:15 PM MANAGER PROPOSAL
--- OUTSIDE RECORDS SUMMARY | 2025-04-17 16:16 | XMS_ITS | Patient Health Record ---
Author Organization [facility] Address [address] [place] [address] Care Team Providers Care Water Filterer Helper Name Role Phone Aubrey FRAGOSO, Silas Primary Care Provider Unavailable Kash Rangel Unavailable [phone] Allergies Allergen (clinical drug ingredient) Drug/Non Drug Allergy documented on EMR Reaction Allergy Type Onset Date Status codeine Codeine Unknown Drug Allergy 06/04/2023 Active Latex Latex Unknown Allergy Active Reason For Referral No Information Medications Medication SIG (Take, Route, Frequency, Duration) Notes Start Date End Date Status Lurasidone HCl 20 MG Tablet 1 tablet in the evening with food Orally Once a day; Duration: 30 days 04/16/2025 Active traZODone HCl 100 MG Tablet 1 tablet as needed at bedtime Oral Once a day; Duration: 90 days 04/16/2025 Active Cyclobenzaprine HCl 5 MG Tablet Oral 06/04/19 24 Active clonazePAM 1 MG Tablet 1 tablet Oral three times a day; Duration: 30 days As needed 04/16/2025 Active Omeprazole 40 MG Capsule Delayed Release Oral 06/04/2023 Active lamoTRIgine 200 MG Tablet 1 tablet at be dtime Oral Once a day; Duration: 90 days 04/16/2025 Active hydroCHLOROthiazide 50 MG Tablet Oral 06/04/2023 Active Potassium Chloride ER 20 MEQ Tablet Extended Release Oral 06/04/2023 Acti ve Immunizations Vaccine Route Administration Date Status Comme nts Pfizer [employer]ion[employer] Covid-19 Vac cine 2nd dose Unknown 12/16/2020 Administered Pfizer [employer]ion[employer] Covid-19 Vac cine 2nd dose Unknown 01/06/2021 Administered Social History Sex Assigned At : Social History Observation Description Sex Assigned At Female Social History Additional Details Category Social Info Options Details Migrated Social History Migrated Social History Alcohol Intake: None 05/07/2022,Tobacco Years: Former smoker 02/10/2018,Smoking Status: 10 06/04/2023 Problems Problem Type SNOMED Code ICD Code Onset Dates Problem Status W/U Status Risk Notes Problem Bipolar disorder (54052281) Bipolar disorder, unspecified (F31.9) 4 Active confirmed Problem Generalized anxiety disorder (71398334) Generalized anxiety disorder (F41.1) 4 Active confirmed Problem Primary insomnia (9946399) Primary insomnia (F51.01) 4 Active confirmed Problem Bipolar affective disorder, currently depressed, moderate (185221320) Bipolar affective disorder, currently depressed, moderate (F31.32) Active confirmed Vital Signs Heart Rate 75 /min 04/16/2025 Height-cm 166.37 cm 04/16/2025 Blood pressure diastolic 76 mm Hg 04/16/2025 Weight-kg 93.44 kg 04/16/2025 Height 65.50 in 04/16/2025 Blood pressure systolic 122 mm Hg 04/16/2025 Weight 206 lbs 04/16/2025 BMI 33.76 kg/m2 04/16/2025 Encounters Encounter Location Date Provider Diagnosis [facility] [place] [address] [address] 07/09/2024 Kash Rangel Encounter for screen ing for cardiovascular disorders Z13.6 ; Encounter for screening for depression Z13.31 ; Generalized anxiety disorder F41.1 ; Primary insomnia F51.01 and Bipolar affective disorder, currently depressed, moderate F31.32 [facility] [address] [place] [address] 11/19/2024 Kash Rangel Generalized anxiety disorder F41.1 ; Primary insomnia F51.01 and Bipolar affective disorder, currently depressed, moderate F31.32 [facility] [place] [address] [place] [address] 12/16/2024 Kash Rangel [facility] [place] [address] [place] [address] 12/30/2024 Kash Rangel Generalized anxiety disorder F41.1 ; Primary insomnia F51.01 and Bipolar affective disorder, currently depressed, moderate F31.32 [facility] [address] [place] [address] 02/01/2025 Kash Ruffa [facility], [facility] [address] [place] [address] 02/12/2025 Kash Bradleyoza Generalized anxiety disorder F41.1 ; Primary insomnia F51.01 and Bipolar affective disorder, currently depressed, moderate F31.32 [facility], [facility] [address] [place] [address] 03/24/2025 Kash Bradleyoza Generalized anxiety disorder F41.1 ; Primary insomnia F51.01 and Bipolar affective disorder, currently depressed, moderate F31.32 [facility] [address] [place] [address] 04/16/2025 Kash Ruffa Generalized anxiety disorder F41.1 ; Primary insomnia F51.01 and Bipolar affective disorder, currently depressed, moderate F31.32 [facility], [place] [address] [place] [address] 07/14/2024 Kash Rangel [facility], [facility] [address] [place] [address] 11/20/2024 [facility], [place] [address] [place] [address] 12/10/2024 [facility], [place] [address] [place] [address] 02/12/2025 Kash Rangel [facility], [place] [address] [place] [address] [facility], [facility] [address] [place] [address] 03/24/2025 Kash Rangel Assessments Encounter Date Diagnosis (ICD Code) Assessment Notes Treatment Notes Treatment Clinical Notes Section Notes 07/09/2024 Encounter for screening for cardiovascular disorders (ICD-10 - Z13.6) she has poor adherence with treatment plan, medications and follow up appointments 11/19/2024 Generalized anxiety disorder (ICD-10 - F41.1) she has poor adherence with treatment plan, medications and follow up appointments 12/30/2024 Generalized anxiety disorder (ICD-10 - F41.1) she has poor adherence with treatment plan, medications and follow up appointments 02/12/2025 Generalized anxiety disorder (ICD-10 - F41.1) she has poor adherence with treatment plan, medications and follow up appointments 03/24/2025 Generalized anxiety disorder (ICD-10 - F41.1) she has poor adherence with treatment plan, medications and follow up appointments 04/16/2025 Generalized anxiety disorder (ICD-10 - F41.1) she has poor adherence with treatment plan, medications and follow up appointments 04/16/2025 Primary insomnia (ICD-10 - F51.01) she has poor adherence with treatment plan, medications and follow up appointments 03/24/2025 Primary insomnia (ICD-10 - F51.01) she has poor adherence with treatment plan, medications and follow up appointments 02/12/2025 Primary insomnia (ICD-10 - F51.01) she has poor adherence with treatment plan, medications and follow up appointments 12/30/2024 Primary insomnia (ICD-10 - F51.01) she has poor adherence with treatment plan, medications and follow up appointments 11/19/2024 Primary insomnia (ICD-10 - F51.01) she has poor adherence with treatment plan, medications and follow up appointments 07/09/2024 Encounter for screening for depression (ICD-10 - Z13.31) she has poor adherence with treatment plan, medications and follow up appointments 07/09/2024 Generalized anxiety disorder (ICD-10 - F41.1) she has poor adherence with treatment plan, medications and follow up appointments 11/19/2024 Bipolar affective disorder, currently depressed, moderate (ICD-10 - F31.32) she has poor adherence with treatment plan, medications and follow up appointments 12/30/2024 Bipolar affective disorder, currently depressed, moderate (ICD-10 - F31.32) she has poor adherence with treatment plan, medications and follow up appointments 02/12/2025 Bipolar affective disorder, currently depressed, moderate (ICD-10 - F31.32) she has poor adherence with treatment plan, medications and follow up appointments 03/24/2025 Bipolar affective disorder, currently depressed, moderate (ICD-10 - F31.32) she has poor adherence with treatment plan, medications and follow up appointments 04/16/2025 Bipolar affective disorder, currently depressed, moderate (ICD-10 - F31.32) she has poor adherence with treatment plan, medications and follow up appointments 07/09/2024 Primary insomnia (ICD-10 - F51.01) she has poor adherence with treatment plan, medications and follow up appointments 07/09/2024 Bipolar affective disorder, currently depressed, moderate (ICD-10 - F31.32) she has poor adherence with treatment plan, medications and follow up appointments 07/09/2024 Other 1. Depression: - Patient reports ongoing depressive symptoms. - Previous treatment with vilazodone 20 mg has been ineffective due to gastrointestinal side effects, leading to poor medication adherence. - Patient expresses openness to trying a different antidepressant. - Current regimen includes lamotrigine, suggesting a history of bipolar disorder. Plan: - Discontinue vilazodone 20 mg due to gastrointestinal side effects and poor adherence. - Initiate Caplyta (lumateperone) 10.5 mg PO daily for bipolar depression. - Provided samples of Caplyta due to patient's financial constraints. - Continue lamotrigine (dose not specified) for mood stabilization. - Follow up in one month to assess efficacy and tolerability of new medication regimen. 2. Insomnia: - Patient reports difficulty with sleep onset, typically not going to bed until 2-3 AM. - Currently managed with trazodone, which the patient reports is effective. Plan: - Continue trazodone (dose not specified) at bedtime for insomnia. 3. Anxiety: - Patient is currently prescribed clonazepam, suggesting a history of anxiety symptoms. - Patient reports no issues with taking this medication. Plan: - Continue clonazepam (dose not specified) as prescribed for anxiety management. 4. Medication-induced gastrointestinal distress: - Patient reports gastrointestinal discomfort associated with vilazodone and potassium supplementation, despite taking with food. - This has led to poor medication adherence. Plan: - Discontinue vilazodone as mentioned in depression management plan. - Advise patient to consult with primary care provider regarding the necessity of potassium supplementation, given the use of hydrochlorothiazide (a potassium-sparing diuretic). she has poor adherence with treatment plan, medications and follow up appointments 11/19/2024 Other Rosalinda Ambrose, a patient with a history of bipolar disorder and depression, presents with ongoing depressive symptoms and medication concerns. Bipolar Disorder with Current Depressive Episode Assessment: Patient reports ongoing depressive symptoms, including feelings of sadness, helplessness, and hopelessness. She is currently taking lamotrigine for bipolar disorder but notes that she is not taking any specific medication for depression. The patient denies any current manic or hypomanic symptoms. Previous trials of multiple antipsychotics and antidepressants have been unsuccessful due to side effects or lack of efficacy, including recent trial of Caplyta which caused cognitive impairment and dizziness after one dose. Plan: - Continue lamotrigine - Start bupropion XL 150 mg PO daily in the morning - Informed patient that this medication can increase energy and wakefulness - Discussed with patient the desire to find a medication without intolerable side effects - Follow-up appointment in 2 months to assess response to bupropion Insomnia Assessment: Patient reports good response to trazodone for sleep, stating it works really good. Previously experienced fitful sleep when not taking trazodone. Plan: - Continue trazodone for sleep Stress Assessment: Patient reports experiencing stress related to unspecified ongoing situations and worries. the note is transcribed using speech recognition software. It is a reflection of a visit with the patient. It might have some inaccuracy, including medication names and transcribing errors, though efforts have been made to correct them. she has poor adherence with treatment plan, medications and follow up appointments 02/12/2025 Other Rosalinda Ambrose presents seeking depression medication after experiencing nausea with vilazodone, with current medications including trazodone for sleep, lamotrigine, and clonazepam. Depression medication intolerance Patient reports inability to tolerate vilazodone due to severe nausea. Has history of multiple failed antidepressant trials including venlafaxine and Lexapro, with genetic testing showing poor metabolism of Lexapro. Previous trial of fluoxetine by another psychiatrist was reportedly ineffective. Patient expresses strong desire for effective depression treatment despite medication intolerances. Plan: - Start Caplyta 10.5 mg daily - Provide samples of Caplyta - Continue lamotrigine 200 mg at bedtime - Continue trazodone 100 mg at bedtime - Continue clonazepam 1 mg three times daily - Follow-up in one month Sleep disturbance Patient reports change in sleep pattern with earlier awakening at 10 AM compared to previous pattern of going to bed at 2 AM and sleeping 6-8 hours. Attributes sleep changes to possible stress. Currently using trazodone for sleep maintenance and expresses reluctance to discontinue it. Plan: - Continue trazodone 100 mg at bedtime the note is transcribed using speech recognition software. It is a reflection of a visit with the patient. It might have some inaccuracy, including medication names and transcribing errors, though efforts have been made to correct them. she has poor adherence with treatment plan, medications and follow up appointments 03/24/2025 Geraldine Ambrose presents with worsening depression characterized by spontaneous crying episodes, social withdrawal, and difficulty getting out of bed, with history of bipolar disorder and multiple failed antidepressant trials. Bipolar disorder with depression Assessment: Patient reports worsening depressive symptoms including spontaneous crying episodes without clear precipitant, social withdrawal with reluctance to leave home, and difficulty getting out of bed. Sleep disturbances are present. 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 Multiple antidepressant trials have been attempted including Lexapro and adjunctive Abilify without adequate response. Current medications include lamotrigine 200mg at bedtime, clonazepam three times daily, and bupropion 150mg daily. Patient has bipolar disorder, and antidepressant monotherapy is not recommended for this condition, necessitating combination therapy or mood stabilizers. Plan: - Start Latuda 20mg daily with food in the evening - Obtain release of information to access previous [employer]) testing results - Follow-up appointment in approximately one month the note is transcribed using speech recognition software. It is a reflection of a visit with the patient. It might have some inaccuracy, including medication names and transcribing errors, though efforts have been made to correct them. she has poor adherence with treatment plan, medications and follow up appointments 04/16/2025 Grealdine Ambrose presents with ongoing bipolar disorder management, expressing reluctance to try Latuda due to fear of side effects while reporting excessive clonazepam use beyond prescribed dosing. Bipolar disorder Assessment: Patient has established bipolar disorder with worsening depressive symptoms over the years. She has been reluctant to try Latuda (lurasidone) due to anxiety about potential side effects after reading medication information. Review of medication history does not show previous trial of Latuda. Patient acknowledges need for additional treatment as current regimen is insufficient for symptom control. Plan: - Start Latuda (lurasidone generic) - patient agreed to trial after discussion of side effect concerns - Patient education provided regarding side effects being possible but not inevitable, using clonazepam as example of medication she tolerates well despite extensive side effect profile Clonazepam overuse Assessment: Patient reports taking more than 6 clonazepam tablets (1 mg each) per day at times, exceeding her prescribed dose of 1 tablet three times daily (3 mg total daily). This represents significant overuse that could lead to early prescription depletion, withdrawal symptoms, increased side effects and increased tolerance. Patient acknowledges the problematic pattern. Plan: - Counseled patient to adhere to prescribed dosing of clonazepam 1 mg three times daily - Educated about risks of withdrawal symptoms and feeling worse if running out early due to overuse - Patient agreed to try limiting to prescribed 3 tablets daily Medication adherence concerns Assessment: Patient demonstrates pattern of medication anxiety related to reading side effect information, which has prevented her from trying potentially beneficial treatments. She reports taking trazodone and lamotrigine as prescribed currently. Plan: - Continue current trazodone and lamotrigine regimen - Discussed that all medications have extensive side effect profiles when studied, but this does not mean patients will experience them - Encouraged patient to focus on potential benefits rather than comprehensive side effect lists the note is transcribed using speech recognition software. It is a reflection of a visit with the patient. It might have some inaccuracy, including medication names and transcribing errors, though efforts have been made to correct them. she has poor adherence with treatment plan, medications and follow up appointments Plan Of Treatment Next Appt Details Provider Name:Sathish Chen, 05/18/2025 10:00:00 AM, [address] [facility] [address], [place], [address], Insurance Providers Payer Name Payer Address Payer Phone Subscriber Number Group Number Insured Name Patient Relationship to Insured Coverage Start Date Coverage End Date Medicare-I l Medicare [address] [place] [address] [id number] ROSALINDA SANTOS Self - patient is the insured Medicaid-I l Medicaid [address] [address] [place] [address] [id number] ROSALINDA SANTOS Self - patient is the insured Medical (General) History Medical History History ICD Code Problems: Amnesia Bipolar disorder Generalized anxiety disorder Obstructive sleep apnea syndrome Primary insomnia Severe depressed bipolar I disorder with out psychotic features , Surgical History Surgery Date(Month/Year) Tonsilectomy/adenoids 04/29/1972 Any surgical history 09/10/1989 Reconstructive surgery 11/09/2022 Removal of gallbladder (93406) 4 Endometrial ablation (59310) 01/31/2005
--- OUTSIDE RECORDS SUMMARY | 2025-04-17 16:16 | XMS_ITS | Clinical Summary ---
Author Organization [facility] Address [address] [place] [address] Phone Care Team Providers Care Inclinometer Tester Name Role Phone Guido Banks MD Primary Care Provider Active Problems Problem Noted Date Diagnosed Date Bipolar 1 disorder 11/02/2016 Anxiety 11/02/2016 Social History Tobacco Use Types Packs/Day Years Used Date Smoking Tobacco: Never Assessed Comments Unknown Sex and Gender Information Value Date Recorded Sex Assigned at Not on file Legal Sex Female 8:43 PM CDT Gender Identity Not on file Sexual Orientation Not on file Plan of Treatment Health Maintenance Due Date Last Done Comments Hepatitis C Virus (HCV) Screening 1965 TdaP Immunization 1965 Hepatitis B Immunization (1 of 3 - 19+ 3-dose series) 08/30/1986 Pap Smear 08/30/1988 Cervical Cancer Screening (CCS) 08/30/1997 HPV/Cotest 08/30/1997 Cologuard 08/30/2012 Colonoscopy 08/30/2012 Colorectal Cancer Screening 08/30/2012 Immunochemical Fecal Occult Blood 08/30/2012 Pneumococcal Immunization (5 0+ years) (1 of 1 - PCV) 08/30/2017 Zoster Immunization (1 of 2) 08/30/2017 Influenza Immunization (#1) 2024 SARS-COV-2 Immunization (1 - season) 2024 Respiratory Syncytial Virus (RSV) Immunization (Adult) (1 - 1-dose 75+ series) 08/30/2042 Human Papillomavirus (HPV) Immunization Aged Out No longer eligible b ased on patient's age to complete this topic Meningococcal Immunization (ACWY) Aged Out No longer eligible based on patient's age to complete this topic Rotavirus Immunization Aged Out No lo nger eligible based on patient's age to complete this topic Insurance MEDICARE [place]ID [place] Care Teams Inclinometer Tester Relationship Specialty Start Date End Date Guido Banks MD [address] [place] [id number] PCP - General Internal Medicine 09/28/16
[2025-04-17 16:23] VITALS: BP 146/77; PULSE 100; RESP 20; TEMP 36.4; O2SAT 99
--- OUTSIDE RECORDS SUMMARY | 2025-04-17 18:55 | XMS_ITS | Clinical Summary ---
Author Organization [facility] Address [address] [place] [address] Phone Care Team Providers Care Cell Tester Name Role Phone Guido Banks MD Primary Care Provider [phone] Active Problems Problem Noted Date Diagnosed Date [...] topic Insurance MEDICARE [place]ID [place] Care Teams Cell Tester Relationship Specialty Start Date End Date Guido Banks MD [address] [place] [id number] PCP - General Internal Medicine 09/28/16
--- NOTE | 2025-04-17 19:26 | ED.GENADULT ---
HPI - General Adult General Chief complaint: Unspecified Stated complaint: lymph node issues Time Seen by Provider: 04/17/25 18:47 Source: patient Mode of arrival: ambulatory Limitations: no limitations History of Present Illness HPI narrative: This is a 59 year old female that presents to the ER for left sided facial, jaw pain. Ongoing over the last couple of days. Feels like the area is swollen. Denies fevers, congestion, sore throat, ear pain, dentalgia. Related Data Home Medications ?Medication ?Instructions ?Recorded ?Confirmed ?Last Taken ?Type lamotrigine 200 mg tablet 200 mg PO HS 02/16/20 11/11/24 10/14/22 22:15 History (Lamictal) clonazepam 1 mg tablet 1 mg PO TID PRN Anxiety 09/13/22 11/11/24 10/15/22 13:00 History naproxen sodium 220 mg tablet 220 mg PO BID PRN 11/11/24 11/11/24 Unknown History (Aleve) trazodone 100 mg tablet 100 mg PO QHS 11/11/24 11/11/24 Unknown History triamcinolone acetonide 0.1 % 1 applic topical BID PRN 11/11/24 11/11/24 Unknown History topical cream Allergies Allergy/AdvReac Type Severity Reaction Status Date / Time latex Allergy Intermediate Itching Verified 04/17/25 16:25 codeine AdvReac Unknown Nausea and Verified 04/17/25 16:25 Vomiting hydrocodone AdvReac Nausea and Verified 04/17/25 16:25 Vomiting Review of Systems Review of Systems: All systems reviewed & are unremarkable except as noted in HPI and below PMFSH Past Medical History Medical History History of deep venous thrombosis (DVT) of distal vein of right lower extremity (~09/2022) post right TKA Old lacunar stroke without late effect Noted on his CT on 10/14/2022. Osteoarthritis of knees, bilateral Prediabetes Hypokalemia Anxiety Bipolar depression Hypertension Surgical History Surgical History History of arthroplasty of right knee (10/10/22) S/P total knee arthroplasty History of hemorrhoidectomy History of endometrial ablation (01/2005) History of (08/1989) History of tonsillectomy (1972) History of cholecystectomy (05/2013) Family History Family History Father Family history of emphysema Family history of thoracic aortic aneurysm Patient's father is Mother Hypertension Family history of arthritis Family history of congestive heart failure Grandparent Hypertension Family history of osteoarthritis Cerebrovascular accident Family history of aortic aneurysm Other Diabetes mellitus Family history of allergic disorder Family history of cardiovascular disease Social History Social History Social History: Surrogate medical decision maker: Katlyn Peterson, mother. Code status: Full code. Smoking packs per day: 2.5 Smoking cigarettes per day: 50.0 Years smoked: 20 Smoking pack-years: 50.00 Smoking status: Former smoker Tobacco type: cigarettes Second hand tobacco smoke exposure: No Smoking end date: 04/29/01 Alcohol intake: never Substance use: never Substance use type: does not use Lack of Transportation: No Lack of Food: Sometimes True Current Housing: I Have Housing Difficulty Paying Gas/Electric Bills: No Difficulty Paying for Meds: No Currently Unemployed: No Education: High School Diploma/GED Difficulty w/ Childcare or Family Care: No Living arrangements: alone Additional living arrangements comments: The patient lives in her own apartment. Occupation/Education: unemployed Additional occupation/education comments: Disabled. Gender identity (if verbalized by the patient): Female Spiritual care concerns: No Exam Narrative: GENERAL: Well-appearing, well-nourished, and in no acute distress. HEAD: Normocephalic, atraumatic. EYES: EOMI. ENT: Nares clear, no rhinorrhea or epistaxis. Mucous membranes moist. Oropharynx without tonsillar hypertrophy exudate or other lesions. Bilateral TMs pearly vazquez non-bulging. Tender to palpation in the left TMJ NECK: Supple. No adenopathy or masses. CHEST: Clear to auscultation. No respiratory distress. No wheezes rales or rhonchi HEART: Regular rate and rhythm. No murmur heard. Normal peripheral pulses. EXTREMITIES: Normal range of motion. No edema. SKIN: Warm, dry, no rash. NEURO: No focal deficits. Alert and oriented x3. PSYCH: Normal mood and affect Course Vital Signs Vital signs: Vital Signs Temperature 97.6 F 12/20/25 16:23 Pulse Rate 100 04/17/25 16:23 Respiratory Rate 20 04/17/25 16:23 Blood Pressure 146/77 H 04/17/25 16:23 Pulse Oximetry 99 04/17/25 16:23 Temperature 97.6 F 04/17/25 16:23 Pulse Rate 100 04/17/25 16:23 Respiratory Rate 20 04/17/25 16:23 Blood Pressure 146/77 H 04/17/25 16:23 Pulse Oximetry 99 04/17/25 16:23 MDM MDM Narrative Medical decision making narrative: Patient presents to the ER for left sided facial, jaw pain. Tender to palpation in the area of the TMJ. Will be started on anti-inflammatories and she has a muscle relaxer she can take as needed. Follow up with PCP Differential Diagnosis Differential Diagnosis: TMJ arthralgia, sinusitis, otitis media, odontogenic infection Critical Care Time Critical Care Time Critical Care Time: No Discharge Plan Discharge Clinical Impression: TMJ arthralgia Patient Disposition: Home Condition: Stable Instructions: Temporomandibular Disorder (ED), Arthralgia (ED) Additional Instructions: Return to the ER if you experience fever, redness and swelling of your face, or any other symptoms that are concerning to you Take Naproxen as prescribed. Cyclobenzaprine as needed Follow up with your primary care doctor Patient Language: Turkish Prescriptions: New naproxen 250 mg tablet 250 mg PO BID Qty: 10 0RF No Action clonazepam 1 mg tablet 1 mg PO TID PRN (Reason: Anxiety) triamcinolone acetonide 0.1 % cream 1 applic topical BID PRN naproxen sodium [Aleve] 220 mg tablet 220 mg PO BID PRN lamotrigine [Lamictal] 200 mg tablet 200 mg PO HS trazodone 100 mg tablet 100 mg PO QHS cyclobenzaprine 5 mg tablet 5 mg PO QHS PRN (Reason: muscle spasm) Qty: 90 0RF (DME) auto blood pressure machine with large cuff See Rx Instructions .Route .MEDSUPPLY Qty: 1 0RF Rx Instructions: Check blood pressure every morning omeprazole 40 mg capsule,delayed release(DR/EC) 40 mg PO DAILY Qty: 90 1RF potassium chloride [Klor-Con 10] 10 mEq tablet extended release 10 meq PO DAILY Qty: 90 1RF hydrochlorothiazide 50 mg tablet 50 mg PO DAILY Qty: 90 1RF Follow-up/Referrals: Niharika Burgos MD [Primary Care Provider, Family Practice]
== END 2025-04-17 20:08 | disposition home or self-care (01) ==
PROVIDERS: Emergency Provider Physician Assistant; PCP Family Medicine
DX: M26.622 Arthralgia of left temporomandibular joint (principal); I10 Essential (primary) hypertension; R73.03 Prediabetes; M17.0 Bilateral primary osteoarthritis of knee; F41.9 Anxiety disorder, unspecified; Z96.651 Presence of right artificial knee joint; Z86.718 Personal history of other venous thrombosis and embolism; Z86.73 Personal history of transient ischemic attack (TIA), and cerebral infarction without residual deficits; Z87.891 Personal history of nicotine dependence; Z90.49 Acquired absence of other specified parts of digestive tract
CPT/HCPCS: 99283